=== PATIENT | female | born 1960 | race Two or more races ===

== ENCOUNTER 2020-01-26 21:13 | Inpatient (IN) | payer OTHER ==
[~2020-01-26] VITALS: Ht 162.6 cm; Wt 49.5 kg
[2020-01-26 21:13] VITALS: BP 92/62
--- NOTE | 2020-01-26 21:13 | NUR ---
ED Nurse Note: Patient ED M[facility]UR[facility] from [facility] c/o hemorrhoids and rectal bleeding, unk start date. Pt has hx of rectal prolapse. No active bleeding noted. Pt is alert and oriented x2, verbally responsive, able to answer question but with forgetfullness. Not in any distress. Afebrile. Pt placed on airport skilled maintenance supervisor. ERMD at bedside.
--- NOTE | 2020-01-26 21:20 | NUR ---
ED Nurse Note: IV line established. Blood specimen obtained and sent to lab.
[2020-01-26] MEDS ORDERED: PANTOPRAZOLE SO20 MG ORAL (21:21)
[2020-01-26] MEDS ORDERED: NORCO 5-325 TA1 EAC1 ORAL (21:21)
[2020-01-26] MEDS ORDERED: KETOROLAC15 MG/1 M1 IJ (21:21)
[2020-01-26] MEDS ORDERED: FERROUS SULFAT325 MG ORAL (21:21)
[2020-01-26] MEDS ORDERED: XIFAXAN550 MG ORAL (21:21)
[2020-01-26] MEDS ORDERED: LACTULOSE10 GM/153 PO (21:21)
[2020-01-26] MEDS ORDERED: ATIVAN0.5 MG ORAL (21:21)
[2020-01-26] MEDS ORDERED: KEPPRA500 M4 ORAL (21:21)
[2020-01-26] MEDS ORDERED: ACETAMINOPHEN325 M1 ORAL (21:21)
[2020-01-26] MEDS ORDERED: ZOFRAN4 M1 ORAL (21:21)
--- NOTE | 2020-01-26 21:21 | Emergency Room Report ---
History of Present Illness General Chief Complaint: Gastrointestinal Bleed Source: Medical Record Present Illness HPI 59-year-old female history of rectal prolapse history of liver cirrhosis history of altered mental status due to psychiatric illness presents with hemorrhoids, rectal prolapse allegedly bloody stools unknown start date, anemia patient presents for evaluation and work-up unknown aggravating or alleviating factors severity is moderate, constant patient is sent for possible GI bleed Allergies: Coded Allergies: No Known Allergies (Unverified , 01/26/20) COVID-19 Screening Contact w/high risk pt: Yes Recent Travel to affected area: No Experienced COVID-19 symptoms?: No Patient History Limited by: medical condition - Psychiatric disability Last Menstrual Period: na Now: No : 0 Para: 0 Reviewed Nursing Documentation: PMH: Agreed; PSxH: Agreed Nursing Documentation-PMH Hx Hypertension: Yes Hx Gastrointestinal Problems: Yes - rectal prolapse; cholecystitis; cirrhosis Hx Dialysis: 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 Hx Neurological Problems: Yes - anxiety Hx Seizures: Yes - epilepsy Review of Systems All Other Systems: limited - Psychiatric disability Physical Exam Vital Signs Date Time Temp Pulse Resp B/P (MAP) Pulse Ox O2 Delivery O2 Flow Rate FiO2 01/26/20 21:02 98.8 77 18 92/62 (72) 88 Room Air Sp02 EP Interpretation: normal, abnormal - Mild hypoxia 94% General Appearance: no apparent distress, alert Head: normocephalic, atraumatic Eyes: bilateral eye PERRL, bilateral eye EOMI, bilateral eye conjunctivae pale ENT: uvula midline, moist mucus membranes Neck: supple, thyroid normal, supple/symm/no masses Respiratory: lungs clear, no respiratory distress, no retraction, no accessory muscle use Cardiovascular #1: normal peripheral pulses, regular rate, rhythm, no edema, no gallop, no murmur Gastrointestinal: non tender, soft, no guarding, no rebound Rectal: hemorrhoids, other - [employer] Yoan RN supervised, no rectal prolapse , some blood on exam Musculoskeletal: normal inspection Neurologic: alert, oriented x3 Psychiatric: mood/affect normal Skin: no rash, warm/dry Medical Decision Making Diagnostic Impression: Primary Impression: Gastrointestinal hemorrhage Qualified Codes: K92.2 - Gastrointestinal hemorrhage, unspecified Additional Impression: Suspected COVID-19 virus infection ER Course 59-year-old female presents with possible GI bleed, will obtain labs, coagulation, differential diagnosis includes ulcer, hemorrhoids, diverticulosis Patient will be started on Protonix, fluids, plan for admission to [facility] patient also be placed under COVID precautions given her some hypoxia Patient admitted to Dr. Aragon Laboratory Tests Test 01/26/20 21:00 01/27/20 01:04 01/27/20 06:26 White Blood Count 5.0 K/UL (4.8-10.8) 2.9 K/UL (4.8-10.8) L Red Blood Count 4.42 M/UL (4.20-5.40) 3.89 M/UL (4.20-5.40) L Hemoglobin 13.7 G/DL (12.0-16.0) 12.1 G/DL (12.0-16.0) Hematocrit 41.7 % (37.0-47.0) 34.5 % (37.0-47.0) L Mean Corpuscular Volume 94 FL (80-99) 89 FL (80-99) Mean Corpuscular Hemoglobin 31.0 PG (27.0-31.0) 31.1 PG (27.0-31.0) H Mean Corpuscular Hemoglobin Concent 32.9 G/DL (32.0-36.0) 35.0 G/DL (32.0-36.0) Red Cell Distribution Width 18.8 % (11.6-14.8) H 16.4 % (11.6-14.8) H Platelet Count 104 K/UL (150-450) L 72 K/UL (150-450) L Mean Platelet Volume 7.2 FL (6.5-10.1) 5.7 FL (6.5-10.1) L Neutrophils (%) (Auto) 69.9 % (45.0-75.0) % (45.0-75.0) Lymphocytes (%) (Auto) 21.9 % (20.0-45.0) % (20.0-45.0) Monocytes (%) (Auto) 5.9 % (1.0-10.0) % (1.0-10.0) Eosinophils (%) (Auto) 1.3 % (0.0-3.0) % (0.0-3.0) Basophils (%) (Auto) 1.0 % (0.0-2.0) % (0.0-2.0) Prothrombin Time 12.6 SEC (9.30-11.50) H Prothrombin Time INR 1.2 (0.9-1.1) H Activated Partial Thromboplast Time 27 SEC (23-33) Sodium Level 140 MMOL/L (136-145) 145 MMOL/L (136-145) Potassium Level 5.1 MMOL/L (3.5-5.1) 3.6 MMOL/L (3.5-5.1) Chloride Level 107 MMOL/L (98-107) 113 MMOL/L (98-107) H Carbon Dioxide Level 27 MMOL/L (21-32) 24 MMOL/L (21-32) Anion Gap 6 mmol/L (5-15) 9 mmol/L (5-15) Blood Urea Nitrogen 18 mg/dL (7-18) 12 mg/dL (7-18) Creatinine 0.8 MG/DL (0.55-1.30) 0.7 MG/DL (0.55-1.30) Estimated Glomerular Filtration Rate > 60 mL/min (>60) > 60 mL/min (>60) Glucose Level 104 MG/DL (74-106) 80 MG/DL (74-106) Lactic Acid Level 0.70 mmol/L (0.4-2.0) Calcium Level 9.7 MG/DL (8.5-10.1) 7.8 MG/DL (8.5-10.1) L Total Bilirubin 0.9 MG/DL (0.2-1.0) Aspartate Amino Transferase (AST) 52 U/L (15-37) H Alanine Aminotransferase (ALT) 32 U/L (12-78) Alkaline Phosphatase 99 U/L (46-116) Troponin I 0.000 ng/mL (0.000-0.056) Total Protein 7.5 G/DL (6.4-8.2) Albumin 3.3 G/DL (3.4-5.0) L Globulin 4.2 g/dL Albumin/Globulin Ratio 0.8 (1.0-2.7) L Lipase 330 U/L (73-393) Urine Color Yellow Urine Appearance Clear Urine pH 6.5 (4.5-8.0) Urine Specific [place] 1.015 (1.005-1.035) Urine Protein Negative (NEGATIVE) Urine Glucose (UA) Negative (NEGATIVE) Urine Ketones 1+ (NEGATIVE) H Urine Blood Negative (NEGATIVE) Urine Nitrite Negative (NEGATIVE) Urine Bilirubin Negative (NEGATIVE) Urine Urobilinogen 1 MG/DL (0.0-1.0) H Urine Leukocyte Esterase 1+ (NEGATIVE) H Urine RBC 0-2 /HPF (0 - 2) Urine WBC 2-4 /HPF (0 - 2) Urine Squamous Epithelial Cells Moderate /LPF (NONE/OCC) H Urine Bacteria Few /HPF (NONE) Differential Total Cells Counted 100 Neutrophils % (Manual) 56 % (45-75) Lymphocytes % (Manual) 38 % (20-45) Monocytes % (Manual) 4 % (1-10) Eosinophils % (Manual) 2 % (0-3) Basophils % (Manual) 0 % (0-2) Band Neutrophils 0 % (0-8) Platelet Estimate Decreased L Platelet Morphology Normal Anisocytosis 1+ EKG Diagnostic Results EKG Time: 21:20 EP Interpretation: NSR, rate 76, QTc 423, no acute ST elevations, normal axis Rhythm Strip Diag. Results Rhythm Strip Time: 21:29 EP Interpretation: yes Rate: 77 Rhythm: NSR, no PVC's, no ectopy Chest X-Ray Diagnostic Results Chest X-Ray Diagnostic Results : Chest X-Ray Ordered: Yes # of Views/Limited/Complete: 1 View Indication: Other - Preoperative EP Interpretation: Yes Interpretation: no consolidation, no effusion, no pneumothorax, no acute cardiopulmonary disease Impression: No acute disease Electronically Signed by: Reynaldo Hickman MD Last Vital Signs Date Time Temp Pulse Resp B/P (MAP) Pulse Ox O2 Delivery O2 Flow Rate FiO2 01/26/20 21:02 98.8 77 18 92/62 (72) 88 Room Air Disposition: ADMITTED INPATIENT Condition: Stable Reynaldo Hickman MD Jan 26, 2020 21:21
[2020-01-26] MEDS ORDERED: Pantoprazole Inj IV ONE (21:30)
--- NOTE | 2020-01-26 21:30 | NUR ---
ED Nurse Note: Xray at bedside.
[2020-01-26 21:50] LABS: EOSINOPHILS % (AUTO) 1.3 % (0.0-3.0); HEMATOCRIT 41.7 % (37.0-47.0); HEMOGLOBIN 13.7 G/DL (12.0-16.0); LYMPHOCYTES % (AUTO) 21.9 % (20.0-45.0); MEAN CORPUSCULAR VOLUME 94 FL (80-99); MONOCYTES % (AUTO) 5.9 % (1.0-10.0); NEUTROPHILS % (AUTO) 69.9 % (45.0-75.0); PLATELET COUNT 104 K/UL (150-450); RED BLOOD COUNT 4.42 M/UL (4.20-5.40); RED CELL DISTRIBUTION WIDTH 18.8 % (11.6-14.8)
[2020-01-26 21:57] LABS: INR 1.2 (0.9-1.1)
[2020-01-26 22:04] LABS: ALANINE AMINOTRANSFERASE 32 U/L (12-78); ALBUMIN 3.3 G/DL (3.4-5.0); ALBUMIN/GLOBULIN RATIO 0.8 (1.0-2.7); ALKALINE PHOSPHATASE 99 U/L (46-116); ANION GAP 6 mmol/L (5-15); ASPARTATE AMINO TRANSFERASE 52 U/L (15-37); BILIRUBIN,TOTAL 0.9 MG/DL (0.2-1.0); BLOOD UREA NITROGEN 18 mg/dL (7-18); CALCIUM 9.7 MG/DL (8.5-10.1); CARBON DIOXIDE 27 MMOL/L (21-32); CHLORIDE 107 MMOL/L (98-107); CREATININE 0.8 MG/DL (0.55-1.30); POTASSIUM 5.1 MMOL/L (3.5-5.1); SODIUM 140 MMOL/L (136-145)
[2020-01-26 23:00] VITALS: BP 97/65
--- NOTE | 2020-01-26 23:07 | NUR ---
ED Nurse Note: Pt is noted with hematoma and small bump on periorbital area.
--- NOTE | 2020-01-26 23:30 | NUR ---
ED Nurse Note: messaged dr. cornoado for orders.
[2020-01-27] VITALS (9 sets, daily range): BP systolic 93–141; BP diastolic 58–80
--- NOTE | 2020-01-27 00:45 | NUR ---
ED Nurse Note: messaged dr. coronado for admission orders, no reply
--- NOTE | 2020-01-27 01:05 | NUR ---
ED Nurse Note: Urien specimen collected and sent to lab.
[2020-01-27 01:14] LABS: APPEARANCE,URINE CLEAR; BILIRUBIN, URINE NEGATIVE (NEGATIVE); GLUCOSE, URINE (UA) NEGATIVE (NEGATIVE); KETONES,URINE 1+ (NEGATIVE); LEUKOCYTE ESTERASE ,URINE 1+ (NEGATIVE); NITRITE,URINE NEGATIVE (NEGATIVE); PH,URINE 6.5 (4.5-8.0); PROTEIN,URINE NEGATIVE (NEGATIVE); UROBILINOGEN,URINE 1 MG/DL (0.0-1.0)
[2020-01-27 01:38] LABS: COLOR,URINE YELLOW
--- NOTE | 2020-01-27 03:10 | NUR ---
ED Nurse Note: messaged dr. coronado for admitting orders, no reply. boarding house cook notified
--- NOTE | 2020-01-27 06:08 | NUR ---
ED Nurse Note: Called Dr. Aragon for admiting orders and was told to call Dr. Arteaga to put in the orders. Addendum: 01/27/20 at 0612 by ELANA ED Nurse Note: Dr. Hahn put in the admitting orders.
[2020-01-27 06:43] LABS: HEMATOCRIT 34.5 % (37.0-47.0); HEMOGLOBIN 12.1 G/DL (12.0-16.0); MEAN CORPUSCULAR VOLUME 89 FL (80-99); PLATELET COUNT 72 K/UL (150-450); RED BLOOD COUNT 3.89 M/UL (4.20-5.40); RED CELL DISTRIBUTION WIDTH 16.4 % (11.6-14.8); WHITE BLOOD COUNT 2.9 K/UL (4.8-10.8)
[2020-01-27 06:55] LABS: ANION GAP 9 mmol/L (5-15); BLOOD UREA NITROGEN 12 mg/dL (7-18); CALCIUM 7.8 MG/DL (8.5-10.1); CARBON DIOXIDE 24 MMOL/L (21-32); CHLORIDE 113 MMOL/L (98-107); CREATININE 0.7 MG/DL (0.55-1.30); POTASSIUM 3.6 MMOL/L (3.5-5.1); SODIUM 145 MMOL/L (136-145)
--- NOTE | 2020-01-27 07:10 | NUR ---
HAND-OFF: Report given to Becca POMPA. Endorsed plan of care.
--- NOTE | 2020-01-27 07:12 | NUR ---
ED Nurse Note: No active bleeding noted. Pt is alert and oriented x2, verbally responsive, able to answer question. Not in any distress. Afebrile. Pt placed on monitoring tech. IV is patent.
--- NOTE | 2020-01-27 10:12 | Diagnostic Imaging Report ---
Indication: Shortness of breath Technique: One view of the chest Comparison: none Findings: Inspiration is suboptimal. Lungs and pleural spaces are clear. The heart size is normal Impression: Negative
--- NOTE | 2020-01-27 10:29 | NUR ---
ED Nurse Note: Report given to ALETHA Samson at 4E.
[2020-01-27] MEDS ORDERED: HYDROcodone/Acetamin 5/325 tab ORAL PRN (10:30)
--- NOTE | 2020-01-27 11:10 | NUR ---
ED Nurse Note: Patient transferred to safely. VSS and afebrile. All belongings packed with the list. Per patient, upper denture was lost prior to come to the ED.
--- NOTE | 2020-01-27 11:26 | NUR ---
nurse notes received patient from ED via bed, patient awake, alewrt, oriented x2 confused no sign of distress, HL patent, oriented to the unit,admission routine care rendered, on fall precaution, 4P's in progress call light w/n reach alpa salgado
[2020-01-27] MEDS: NS w/KCl 20mEq 1000ml 1,000 ML IV SCH (12:34)
[2020-01-27] MEDS: LORazepam 0.5mg tab ORAL SCH ×2 (12:34→17:09)
--- NOTE | 2020-01-27 13:14 | NUR ---
nurse notes refused IV hydration and oxygen, alpa salgado
--- NOTE | 2020-01-27 14:30 | General Progress Note ---
Assessment/Plan Assessment/Plan: cirrhosis rectal prolapse hemorrhoids psych ppi abd us hepatitis panel anusol hc surg consult fu H&H GI procedures if needed Subjective ROS Limited/Unobtainable: No Allergies: Coded Allergies: No Known Allergies (Unverified , 01/26/20) Objective Last 24 Hour Vital Signs Date Time Temp Pulse Resp B/P (MAP) Pulse Ox O2 Delivery O2 Flow Rate FiO2 01/27/20 11:50 97.5 79 18 110/62 (78) 97 01/27/20 11:37 Nasal Cannula 2.0 01/27/20 11:16 97.8 55 18 101/67 96 Nasal Cannula 2.0 58 01/27/20 10:54 97.8 55 18 101/67 96 Nasal Cannula 2.0 58 01/27/20 09:30 97.6 99 98/58 Nasal Cannula 2.0 01/27/20 07:15 97.1 57 12 113/64 100 Nasal Cannula 2.0 01/27/20 06:00 98.8 67 18 100/62 98 Room Air 01/27/20 03:00 98.8 68 18 99/65 97 Room Air 01/27/20 01:00 98.8 77 18 93/60 88 Room Air 01/26/20 23:00 98.8 80 16 97/65 98 Room Air 01/26/20 21:13 77 18 Room Air 01/26/20 21:13 98.8 77 18 92/62 88 Room Air 01/26/20 21:02 98.8 77 18 92/62 (72) 88 Room Air Intake and Output 01/26/20 01/27/20 19:00 07:00 Intake Total 1000 ml Balance 1000 ml Intake IV Total 1000 ml Laboratory Tests 01/26/20 21:00: White Blood Count 5.0, Red Blood Count 4.42, Hemoglobin 13.7, Hematocrit 41.7, Mean Corpuscular Volume 94, Mean Corpuscular Hemoglobin 31.0, Mean Corpuscular Hemoglobin Concent 32.9, Red Cell Distribution Width 18.8H, Platelet Count 104L , Mean Platelet Volume 7.2, Neutrophils (%) (Auto) 69.9, Lymphocytes (%) (Auto) 21.9, Monocytes (%) (Auto) 5.9, Eosinophils (%) (Auto) 1.3, Basophils (%) (Auto ) 1.0, Prothrombin Time 12.6H, Prothromb Time International Ratio 1.2H, Activated Partial Thromboplast Time 27, Sodium Level 140, Potassium Level 5.1, Chloride Level 107, Carbon Dioxide Level 27, Anion Gap 6, Blood Urea Nitrogen 18 , Creatinine 0.8, Estimat Glomerular Filtration Rate > 60, Glucose Level 104, Lactic Acid Level 0.70, Calcium Level 9.7, Total Bilirubin 0.9, Aspartate Amino Transf (AST/SGOT) 52H, Alanine Aminotransferase (ALT/SGPT) 32, Alkaline Phosphatase 99, Troponin I 0.000, Total Protein 7.5, Albumin 3.3L, Globulin 4.2 , Albumin/Globulin Ratio 0.8L, Lipase 330 01/27/20 01:04: Urine Color Yellow, Urine Appearance Clear, Urine pH 6.5, Urine Specific [place] 1.015, Urine Protein Negative, Urine Glucose (UA) Negative, Urine Ketones 1+H, Urine Blood Negative, Urine Nitrite Negative, Urine Bilirubin Negative, Urine Urobilinogen 1H, Urine Leukocyte Esterase 1+H, Urine RBC 0-2, Urine WBC 2-4, Urine Squamous Epithelial Cells ModerateH, Urine Bacteria Few 01/27/20 06:26: White Blood Count 2.9L, Red Blood Count 3.89L, Hemoglobin 12.1, Hematocrit 34.5L , Mean Corpuscular Volume 89, Mean Corpuscular Hemoglobin 31.1H, Mean Corpuscular Hemoglobin Concent 35.0, Red Cell Distribution Width 16.4H, Platelet Count 72L, Mean Platelet Volume 5.7L, Neutrophils (%) (Auto) , Lymphocytes (%) (Auto) , Monocytes (%) (Auto) , Eosinophils (%) (Auto) , Basophils (%) (Auto) , Sodium Level 145, Potassium Level 3.6, Chloride Level 113H, Carbon Dioxide Level 24, Anion Gap 9, Blood Urea Nitrogen 12, Creatinine 0.7, Estimat Glomerular Filtration Rate > 60, Glucose Level 80, Calcium Level 7.8L, Differential Total Cells Counted 100, Neutrophils % (Manual) 56, Lymphocytes % (Manual) 38, Monocytes % (Manual) 4, Eosinophils % (Manual) 2, Basophils % (Manual) 0, Band Neutrophils 0, Platelet Estimate DecreasedL, Platelet Morphology Normal, Anisocytosis 1+ Height (Feet): 5 Height (Inches): 4.00 Weight (Pounds): 109 General Appearance: no apparent distress EENT: normal ENT inspection Neck: supple Cardiovascular: normal rate Respiratory/Chest: decreased breath sounds Abdomen: normal bowel sounds, non tender, soft Extremities: non-tender Jose Maria Ge MD Jan 27, 2020 14:30
--- NOTE | 2020-01-27 15:06 | NUR ---
nurse notes patient pulled out her HL,refused IVF, Rrefused to put face mask, removed pads on the side rails , patient claimed she doesnt need all of this stuff , dr craven notified regarding patient concern and behavior awaiting for his call alpa salgado
--- NOTE | 2020-01-27 16:00 | NUR ---
nurse notes per Dr Jimenez ok not to have an HL, just feed the patient, NPO post MISA HUTCHINSON RN
--- NOTE | 2020-01-27 16:56 | Consultation ---
History of Present Illness General Date patient seen: Jan 27, 2020 Reason for Hospitalization: Gastrointestinal Bleed Present Illness HPI This is a very pleasant 59-year-old female with multiple medical comorbidities and known history of rectal prolapse history of liver cirrhosis history of altered mental status due to psychiatric illness presents with hemorrhoids, rectal prolapse allegedly bloody stools unknown start date, anemia patient presents for evaluation and work-up unknown aggravating or alleviating factors severity is moderate, constant patient is sent for possible GI bleed. Surgery called to evaluate assist care. Patient seen, patient evaluated, chart reviewed. Patient states that she could be bleeding from the bottom but is not sure. Had a bowel movement recently. She somewhat seems to understand what her rectal prolapse is but overall due to psychiatric illness and mental status is not very reliable in history or exam. She is cooperative with examination though Allergies: Coded Allergies: No Known Allergies (Unverified , 01/26/20) COVID-19 Screening Contact w/high risk pt: Yes Recent Travel to affected area: Yes Experienced COVID-19 symptoms?: No Medication History Scheduled Ferrous Sulfate* (Ferrous Sulfate*), 325 MG ORAL DAILY, (Reported) Levetiracetam (Keppra), 500 MG ORAL EVERY 12 HOURS, (Reported) Lorazepam* (Ativan*), 0.5 MG ORAL THREE TIMES A DAY, (Reported) Pantoprazole (Pantoprazole), 40 MG ORAL DAILY, (Reported) Rifaximin* (Xifaxan*), 550 MG ORAL TWICE A DAY, (Reported) Scheduled PRN Acetaminophen* (Acetaminophen 325MG Tablet*), 325 MG ORAL Q4H PRN for For Pain Level <=5, (Reported) Hydrocodone Bit/Acetaminophen 5-325* ([place] 5-325 Tablet*), 1 TAB ORAL Q4H PRN for Pain Scale (6-10), (Reported) Ondansetron (Zofran), 4 MG ORAL Q6H PRN for Nausea & Vomiting, (Reported) Miscellaneous Medications Ketorolac Tromethamine (Ketorolac Tromethamine), 15 MG IJ, (Reported) Lactulose (Lactulose), 20 GM PO, (Reported) Patient History Limited by: medical condition History Provided By: Patient, Medical Record, PMD Healthcare decision maker Resuscitation status Full Code Advanced Directive on File Past Medical/Surgical History Past Medical/Surgical History: (1) Gastrointestinal bleeding (2) Gastrointestinal hemorrhage (3) Suspected COVID-19 virus infection Review of Systems Review of Symptoms General ROS: no weight loss or fever Psychological ROS: no depression or mood changes, no memory loss Ophthalmic ROS: no visual changes or eye irritation ENT ROS: no nasal congestion, hearing loss, dizziness Allergy and Immunology ROS: no allergic symptoms or urticaria Hematological and Lymphatic ROS: no swollen glands, unusual bleeding or bruising Endocrine ROS: no polyuria, polydipsia, weight changes, temperature intolerance Respiratory ROS: no cough, shortness of breath, or wheezing Cardiovascular ROS: no chest pain or dyspnea on exertion Gastrointestinal ROS: denies abdominal pain, bright red blood in stool. Musculoskeletal ROS: no myalgias or arthralgias Neurological ROS: no TIA or stroke symptoms Dermatological ROS: no new or changing skin lesions, rashes or pruritis Physical Exam Physical Exam General appearance: alert, cooperative, no distress, appears stated age Head: Normocephalic, without obvious abnormality, atraumatic Eyes: conjunctivae/corneas clear. PERRL, EOM's intact. Fundi benign Throat: Lips, mucosa, and tongue normal. Teeth and gums normal Neck: supple, symmetrical, trachea midline, no adenopathy, thyroid: not enlarged, symmetric, no tenderness/mass/nodules, no carotid bruit and no JVD Lungs: clear to auscultation bilaterally Heart: regular rate and rhythm, S1, S2 normal, no murmur, click, rub or gallop Abdomen: soft, non-tender. Bowel sounds normal. No masses, no organomegaly Extremities: extremities normal, atraumatic, no cyanosis or edema Pulses: 2+ and symmetric Skin: Skin color, texture, turgor normal. No rashes or lesions Neurologic: Grossly normal Rectal exam without gross blood. No large external hemorrhoids noted. Sphincter tone decreased. Rectal prolapse reduced. Last 24 Hour Vital Signs Date Time Temp Pulse Resp B/P (MAP) Pulse Ox O2 Delivery O2 Flow Rate FiO2 01/27/20 16:00 98.6 79 19 141/80 (100) 98 01/27/20 11:50 97.5 79 18 110/62 (78) 97 01/27/20 11:37 Nasal Cannula 2.0 01/27/20 11:16 97.8 55 18 101/67 96 Nasal Cannula 2.0 58 01/27/20 10:54 97.8 55 18 101/67 96 Nasal Cannula 2.0 58 01/27/20 09:30 97.6 99 98/58 Nasal Cannula 2.0 01/27/20 07:15 97.1 57 12 113/64 100 Nasal Cannula 2.0 01/27/20 06:00 98.8 67 18 100/62 98 Room Air 01/27/20 03:00 98.8 68 18 99/65 97 Room Air 01/27/20 01:00 98.8 77 18 93/60 88 Room Air 01/26/20 23:00 98.8 80 16 97/65 98 Room Air 01/26/20 21:13 77 18 Room Air 01/26/20 21:13 98.8 77 18 92/62 88 Room Air 01/26/20 21:02 98.8 77 18 92/62 (72) 88 Room Air Intake and Output 01/26/20 01/27/20 19:00 07:00 Intake Total 1000 ml Balance 1000 ml Intake IV Total 1000 ml Laboratory Tests Test 01/26/20 21:00 01/27/20 01:04 01/27/20 06:26 White Blood Count 5.0 K/UL (4.8-10.8) 2.9 K/UL (4.8-10.8) L Red Blood Count 4.42 M/UL (4.20-5.40) 3.89 M/UL (4.20-5.40) L Hemoglobin 13.7 G/DL (12.0-16.0) 12.1 G/DL (12.0-16.0) Hematocrit 41.7 % (37.0-47.0) 34.5 % (37.0-47.0) L Mean Corpuscular Volume 94 FL (80-99) 89 FL (80-99) Mean Corpuscular Hemoglobin 31.0 PG (27.0-31.0) 31.1 PG (27.0-31.0) H Mean Corpuscular Hemoglobin Concent 32.9 G/DL (32.0-36.0) 35.0 G/DL (32.0-36.0) Red Cell Distribution Width 18.8 % (11.6-14.8) H 16.4 % (11.6-14.8) H Platelet Count 104 K/UL (150-450) L 72 K/UL (150-450) L Mean Platelet Volume 7.2 FL (6.5-10.1) 5.7 FL (6.5-10.1) L Neutrophils (%) (Auto) 69.9 % (45.0-75.0) % (45.0-75.0) Lymphocytes (%) (Auto) 21.9 % (20.0-45.0) % (20.0-45.0) Monocytes (%) (Auto) 5.9 % (1.0-10.0) % (1.0-10.0) Eosinophils (%) (Auto) 1.3 % (0.0-3.0) % (0.0-3.0) Basophils (%) (Auto) 1.0 % (0.0-2.0) % (0.0-2.0) Prothrombin Time 12.6 SEC (9.30-11.50) H Prothromb Time International Ratio 1.2 (0.9-1.1) H Activated Partial Thromboplast Time 27 SEC (23-33) Sodium Level 140 MMOL/L (136-145) 145 MMOL/L (136-145) Potassium Level 5.1 MMOL/L (3.5-5.1) 3.6 MMOL/L (3.5-5.1) Chloride Level 107 MMOL/L (98-107) 113 MMOL/L (98-107) H Carbon Dioxide Level 27 MMOL/L (21-32) 24 MMOL/L (21-32) Anion Gap 6 mmol/L (5-15) 9 mmol/L (5-15) Blood Urea Nitrogen 18 mg/dL (7-18) 12 mg/dL (7-18) Creatinine 0.8 MG/DL (0.55-1.30) 0.7 MG/DL (0.55-1.30) Estimat Glomerular Filtration Rate > 60 mL/min (>60) > 60 mL/min (>60) Glucose Level 104 MG/DL (74-106) 80 MG/DL (74-106) Lactic Acid Level 0.70 mmol/L (0.4-2.0) Calcium Level 9.7 MG/DL (8.5-10.1) 7.8 MG/DL (8.5-10.1) L Total Bilirubin 0.9 MG/DL (0.2-1.0) Aspartate Amino Transf (AST/SGOT) 52 U/L (15-37) H Alanine Aminotransferase (ALT/SGPT) 32 U/L (12-78) Alkaline Phosphatase 99 U/L (46-116) Troponin I 0.000 ng/mL (0.000-0.056) Total Protein 7.5 G/DL (6.4-8.2) Albumin 3.3 G/DL (3.4-5.0) L Globulin 4.2 g/dL Albumin/Globulin Ratio 0.8 (1.0-2.7) L Lipase 330 U/L (73-393) Urine Color Yellow Urine Appearance Clear Urine pH 6.5 (4.5-8.0) Urine Specific [place] 1.015 (1.005-1.035) Urine Protein Negative (NEGATIVE) Urine Glucose (UA) Negative (NEGATIVE) Urine Ketones 1+ (NEGATIVE) H Urine Blood Negative (NEGATIVE) Urine Nitrite Negative (NEGATIVE) Urine Bilirubin Negative (NEGATIVE) Urine Urobilinogen 1 MG/DL (0.0-1.0) H Urine Leukocyte Esterase 1+ (NEGATIVE) H Urine RBC 0-2 /HPF (0 - 2) Urine WBC 2-4 /HPF (0 - 2) Urine Squamous Epithelial Cells Moderate /LPF (NONE/OCC) H Urine Bacteria Few /HPF (NONE) Differential Total Cells Counted 100 Neutrophils % (Manual) 56 % (45-75) Lymphocytes % (Manual) 38 % (20-45) Monocytes % (Manual) 4 % (1-10) Eosinophils % (Manual) 2 % (0-3) Basophils % (Manual) 0 % (0-2) Band Neutrophils 0 % (0-8) Platelet Estimate Decreased L Platelet Morphology Normal Anisocytosis 1+ Microbiology Date/Time Source Procedure Growth Status 01/26/20 21:34 Rectum Received Height (Feet): 5 Height (Inches): 4.00 Weight (Pounds): 109 Medications Current Medications Medications (Trade) Dose Ordered Sig/Pilar Route PRN Reason Start Time Stop Time Status Last Admin Dose Admin Acetaminophen (Tylenol) 325 mg Q4H PRN ORAL For Pain Level <=5 01/27/20 10:30 02/26/20 10:29 Acetaminophen/ Hydrocodone Bitart ([place] 5/325) 1 tab Q4H PRN ORAL Moderate Pain (Pain Scale 4-6) 01/27/20 10:30 02/03/20 10:29 Dextrose (Dextrose 50%) 25 ml Q30M PRN IV Hypoglycemia 01/27/20 10:30 04/26/20 10:29 Dextrose (Dextrose 50%) 50 ml Q30M PRN IV Hypoglycemia 01/27/20 10:30 04/26/20 10:29 Ferrous Sulfate (Feosol) 325 mg DAILY ORAL 01/28/20 09:00 04/27/20 08:59 Hydrocortisone (Anusol HC) 25 mg TWICE A DAY RECTAL 01/27/20 18:00 04/26/20 17:59 Levetiracetam (Keppra) 500 mg EVERY 12 HOURS ORAL 01/27/20 21:00 02/26/20 20:59 Lorazepam (Ativan) 0.5 mg THREE TIMES A DAY ORAL 01/27/20 13:00 02/03/20 12:59 01/27/20 12:34 Ondansetron HCl (Zofran) 4 mg Q6H PRN ORAL Nausea & Vomiting 01/27/20 10:30 02/26/20 10:29 Pantoprazole (Protonix) 40 mg DAILY IV 01/28/20 09:00 02/27/20 08:59 Potassium Chloride/Sodium Chloride 1,000 ml @ 50 mls/hr Q20H IV 01/27/20 12:00 02/26/20 11:59 01/27/20 12:34 Rifaximin (Xifaxan) 550 mg TWICE A DAY ORAL 01/27/20 18:00 02/03/20 17:59 Assessment/Plan Problem List: (1) Gastrointestinal hemorrhage Assessment & Plan: 59-year-old female with history of liver cirrhosis, rectal prolapse, psychiatric disorder, multiple comorbidities presented with potential GI bleed is noted to have some blood. Currently no bleeding. Rectal prolapse is reduced. No large hemorrhoids noted. No nausea vomiting fever chills. She is fairly present and comfortable at this time. Labs noted. Hemoglobin stable. Trend labs. Okay for diet from surgical standpoint Ultrasound abdomen No acute surgical intervention planned will follow with recommendations and serial examinations thank you for let me participate in patient's care ICD Codes: K92.2 - Gastrointestinal hemorrhage, unspecified SNOMED: 12306983 Qualifiers: Qualified Codes: K92.2 - Gastrointestinal hemorrhage, unspecified (2) Suspected COVID-19 virus infection ICD Codes: Z20.828 - Contact with and (suspected) exposure to other viral communicable diseases SNOMED: 861899874 (3) Gastrointestinal bleeding ICD Codes: K92.2 - Gastrointestinal hemorrhage, unspecified SNOMED: 54563456 Osmni Minaya Jan 27, 2020 16:56
[2020-01-27] MEDS: Hydrocortisone 25mg supp RECTAL SCH (17:10)
--- NOTE | 2020-01-27 17:29 | Consultation ---
DATE OF CONSULTATION: 01/27/2020 PULMONARY CONSULTATION HISTORY OF PRESENT ILLNESS: This is a 59-year-old female with a history of liver cirrhosis and chronically altered mental status/encephalopathy, who came to the hospital with rectal bleeding. The patient has a history of rectal prolapse as well as hemorrhoids. She also has been having bloody stools. The patient was seen and evaluated, admitted to the hospital for subsequent management and care. Hemoglobin was 13.7 on arrival. At this time, the patient states she is feeling well and unable to answer any further questions. PAST MEDICAL HISTORY: Notable for psych disorder, rectal prolapse, liver cirrhosis, history of cholecystitis, chronic renal insufficiency, anxiety, and seizure disorder. REVIEW OF SYSTEMS: Unreliable. PHYSICAL EXAMINATION: GENERAL: Reveals an elderly female. VITAL SIGNS: Blood pressure is 90/60, heart rate is 94, respiratory rate 20, afebrile, O2 saturation 100% on 2 L of oxygen. HEENT: Unremarkable. CHEST: Clear breath sounds bilaterally. HEART: Normal heart sounds. ABDOMEN: Soft. EXTREMITIES: There is no edema. LABORATORY DATA: Lab testing shows normal chemistries with AST of 52. White count 2.9, hemoglobin 12, platelet count 72,000. Coags show INR of 1.2. Urinalysis is negative. IMAGING STUDIES: X-ray chest obtained, which shows clear lung [place] bilaterally. IMPRESSION: 1. Lower GI bleed. 2. Hemorrhoids. 3. Rectal prolapse. 4. Liver cirrhosis. 5. Thrombocytopenia. 6. Psych disorder. DISCUSSION: Admitted to the hospital. Continue home medications. Consult surgery and GI. We will follow as pattern attendant. Art Arteaga M.D. DR: Kevin JOB#: [id number] CC:
--- NOTE | 2020-01-27 19:28 | NUR ---
HAND-OFF: Report given to ALETHA TORREZ RN.
--- NOTE | 2020-01-27 19:30 | NUR ---
NURSE NOTES: Received patient in no apparent distress. A&OX2, confusion. Bed in lowest position. Call light within reach. Will continue to monitor.
[2020-01-28] VITALS: BP 100/67
[2020-01-28 04:00] VITALS: BP 118/68
[2020-01-28 06:42] LABS: INR 1.2 (0.9-1.1)
[2020-01-28 07:12] LABS: AMMONIA 22 umol/L (11-32)
[2020-01-28 07:13] LABS: BASOPHILS % (AUTO) 0.8 % (0.0-2.0); HEMATOCRIT 37.5 % (37.0-47.0); HEMOGLOBIN 13.4 G/DL (12.0-16.0); LYMPHOCYTES % (AUTO) 35.5 % (20.0-45.0); MEAN CORPUSCULAR VOLUME 88 FL (80-99); MONOCYTES % (AUTO) 6.3 % (1.0-10.0); NEUTROPHILS % (AUTO) 55.4 % (45.0-75.0); PLATELET COUNT 105 K/UL (150-450); RED BLOOD COUNT 4.24 M/UL (4.20-5.40); WHITE BLOOD COUNT 3.6 K/UL (4.8-10.8)
--- NOTE | 2020-01-28 07:25 | NUR ---
NURSE NOTES: Received patient A/A/OX3, palestinian speaking, able to follow commands. ambulates with minimal assist. fall risk implemented. yellow socks. NO acutre resp distress noted. Bed in lowest position. siderails are up x3. No IV access and refused to be reinserted. Call light within reach. Will continue to monitor.
--- NOTE | 2020-01-28 07:30 | NUR ---
HAND-OFF: Report given to Arabella POMPA.
[2020-01-28 07:40] LABS: ALANINE AMINOTRANSFERASE 38 U/L (12-78); ALBUMIN 3.3 G/DL (3.4-5.0); ALBUMIN/GLOBULIN RATIO 0.8 (1.0-2.7); ALKALINE PHOSPHATASE 94 U/L (46-116); ANION GAP 10 mmol/L (5-15); ASPARTATE AMINO TRANSFERASE 36 U/L (15-37); BLOOD UREA NITROGEN 8 mg/dL (7-18); CALCIUM 9.1 MG/DL (8.5-10.1); CARBON DIOXIDE 26 MMOL/L (21-32); CHLORIDE 108 MMOL/L (98-107); CREATININE 0.7 MG/DL (0.55-1.30); POTASSIUM 4.6 MMOL/L (3.5-5.1); SODIUM 144 MMOL/L (136-145)
[2020-01-28 08:00] VITALS: BP 105/69
[2020-01-28] MEDS: NS w/KCl 20mEq 1000ml 1,000 ML IV SCH (08:00)
[2020-01-28] MEDS: LORazepam 0.5mg tab ORAL SCH ×3 (08:12→17:29)
[2020-01-28] MEDS: Hydrocortisone 25mg supp RECTAL SCH ×2 (08:15→17:29)
[2020-01-28 08:58] LABS: % IRON SATURATION 29 % (15-50); IRON 98 ug/dL (50-175); TOTAL IRON BINDING CAPACITY 344 ug/dL (250-450)
[2020-01-28] MEDS ORDERED: Pantoprazole Inj IV SCH (09:00)
--- NOTE | 2020-01-28 09:54 | General Progress Note ---
Assessment/Plan Assessment/Plan: cirrhosis rectal prolapse>>> reduced by surg yesterday hemorrhoids psych ppi abd us hepatitis panel anusol hc surg consult appreciated fu H&H>>> stable GI procedures on hold Subjective Allergies: Coded Allergies: No Known Allergies (Unverified , 01/26/20) Objective Last 24 Hour Vital Signs Date Time Temp Pulse Resp B/P (MAP) Pulse Ox O2 Delivery O2 Flow Rate FiO2 01/28/20 09:05 Room Air 01/28/20 08:00 97.6 71 20 105/69 (81) 99 01/28/20 04:00 97.8 74 18 118/68 (85) 96 01/28/20 00:00 98.0 76 19 100/67 (78) 97 01/27/20 21:00 Room Air 01/27/20 20:00 98.3 72 19 98/62 (74) 96 01/27/20 16:00 98.6 79 19 141/80 (100) 98 01/27/20 11:50 97.5 79 18 110/62 (78) 97 01/27/20 11:37 Nasal Cannula 2.0 01/27/20 11:16 97.8 55 18 101/67 96 Nasal Cannula 2.0 58 01/27/20 10:54 97.8 55 18 101/67 96 Nasal Cannula 2.0 58 Intake and Output 01/27/20 01/28/20 19:00 07:00 Intake Total 640 ml 640 ml Balance 640 ml 640 ml Intake Oral 640 ml 640 ml # Voids 4 2 Laboratory Tests 01/28/20 05:50: White Blood Count 3.6L, Red Blood Count 4.24, Hemoglobin 13.4, Hematocrit 37.5, Mean Corpuscular Volume 88, Mean Corpuscular Hemoglobin 31.5H, Mean Corpuscular Hemoglobin Concent 35.6, Red Cell Distribution Width 16.0H, Platelet Count 105L , Mean Platelet Volume 5.5L, Neutrophils (%) (Auto) 55.4, Lymphocytes (%) (Auto ) 35.5, Monocytes (%) (Auto) 6.3, Eosinophils (%) (Auto) 2.0, Basophils (%) ( Auto) 0.8, Prothrombin Time 12.9H, Prothromb Time International Ratio 1.2H, Sodium Level 144, Potassium Level 4.6, Chloride Level 108H, Carbon Dioxide Level 26, Anion Gap 10, Blood Urea Nitrogen 8, Creatinine 0.7, Estimat Glomerular Filtration Rate > 60, Glucose Level 84, Calcium Level 9.1, Iron Level 98, Total Iron Binding Capacity 344, Percent Iron Saturation 29, Unsaturated Iron Binding 246, Total Bilirubin 1.0, Aspartate Amino Transf (AST/ SGOT) 36, Alanine Aminotransferase (ALT/SGPT) 38, Alkaline Phosphatase 94, Ammonia 22, Total Protein 7.5, Albumin 3.3L, Globulin 4.2, Albumin/Globulin Ratio 0.8L, Vitamin B12 Level 1006H, Folate 16.5, Hepatitis A IgM Antibody [ Pending], Hepatitis B Surface Antigen [Pending], Hepatitis B Core IgM Antibody [ Pending], Hepatitis C Antibody [Pending] Height (Feet): 5 Height (Inches): 4.00 Weight (Pounds): 109 General Appearance: alert EENT: normal ENT inspection Neck: supple Cardiovascular: normal rate Respiratory/Chest: decreased breath sounds Abdomen: normal bowel sounds, non tender, soft Extremities: non-tender Jose Maria Ge MD January 28, 2020 09:54
--- NOTE | 2020-01-28 11:39 | Surgery Progress Note ---
Surgery Progress Note Subjective Symptoms: improved, pain absent, tolerating diet, voiding well, passing flatus Objective Last 24 Hour Vital Signs Date Time Temp Pulse Resp B/P (MAP) Pulse Ox O2 Delivery O2 Flow Rate FiO2 01/28/20 09:05 Room Air 01/28/20 08:00 97.6 71 20 105/69 (81) 99 01/28/20 04:00 97.8 74 18 118/68 (85) 96 01/28/20 00:00 98.0 76 19 100/67 (78) 97 01/27/20 21:00 Room Air 01/27/20 20:00 98.3 72 19 98/62 (74) 96 01/27/20 16:00 98.6 79 19 141/80 (100) 98 01/27/20 11:50 97.5 79 18 110/62 (78) 97 I&O Intake and Output 01/27/20 01/28/20 19:00 07:00 Intake Total 640 ml 640 ml Balance 640 ml 640 ml Intake Oral 640 ml 640 ml # Voids 4 2 Cardiovascular: RSR Respiratory: clear Abdomen: soft, non-tender, present bowel sounds, non-distended Extremities: no edema, no tenderness, no cyanosis Laboratory Tests Test 01/28/20 05:50 White Blood Count 3.6 K/UL (4.8-10.8) L Red Blood Count 4.24 M/UL (4.20-5.40) Hemoglobin 13.4 G/DL (12.0-16.0) Hematocrit 37.5 % (37.0-47.0) Mean Corpuscular Volume 88 FL (80-99) Mean Corpuscular Hemoglobin 31.5 PG (27.0-31.0) H Mean Corpuscular Hemoglobin Concent 35.6 G/DL (32.0-36.0) Red Cell Distribution Width 16.0 % (11.6-14.8) H Platelet Count 105 K/UL (150-450) L Mean Platelet Volume 5.5 FL (6.5-10.1) L Neutrophils (%) (Auto) 55.4 % (45.0-75.0) Lymphocytes (%) (Auto) 35.5 % (20.0-45.0) Monocytes (%) (Auto) 6.3 % (1.0-10.0) Eosinophils (%) (Auto) 2.0 % (0.0-3.0) Basophils (%) (Auto) 0.8 % (0.0-2.0) Prothrombin Time 12.9 SEC (9.30-11.50) H Prothromb Time International Ratio 1.2 (0.9-1.1) H Sodium Level 144 MMOL/L (136-145) Potassium Level 4.6 MMOL/L (3.5-5.1) Chloride Level 108 MMOL/L (98-107) H Carbon Dioxide Level 26 MMOL/L (21-32) Anion Gap 10 mmol/L (5-15) Blood Urea Nitrogen 8 mg/dL (7-18) Creatinine 0.7 MG/DL (0.55-1.30) Estimat Glomerular Filtration Rate > 60 mL/min (>60) Glucose Level 84 MG/DL (74-106) Calcium Level 9.1 MG/DL (8.5-10.1) Iron Level 98 ug/dL (50-175) Total Iron Binding Capacity 344 ug/dL (250-450) Percent Iron Saturation 29 % (15-50) Unsaturated Iron Binding 246 ug/dL (112-346) Total Bilirubin 1.0 MG/DL (0.2-1.0) Aspartate Amino Transf (AST/SGOT) 36 U/L (15-37) Alanine Aminotransferase (ALT/SGPT) 38 U/L (12-78) Alkaline Phosphatase 94 U/L (46-116) Ammonia 22 umol/L (11-32) Total Protein 7.5 G/DL (6.4-8.2) Albumin 3.3 G/DL (3.4-5.0) L Globulin 4.2 g/dL Albumin/Globulin Ratio 0.8 (1.0-2.7) L Vitamin B12 Level 1006 PG/ML (193-986) H Folate 16.5 NG/ML (8.6-58.9) Hepatitis A IgM Antibody Pending Hepatitis B Surface Antigen Pending Hepatitis B Core IgM Antibody Pending Hepatitis C Antibody Pending Plan Problems: (1) Gastrointestinal hemorrhage Assessment & Plan: 59-year-old female with history of liver cirrhosis, rectal prolapse, psychiatric disorder, multiple comorbidities presented with potential GI bleed is noted to have some blood. Currently no bleeding. Rectal prolapse is reduced. No large hemorrhoids noted. No nausea vomiting fever chills. She is fairly present and comfortable at this time. Labs noted. Hemoglobin stable. Trend labs. Okay for diet from surgical standpoint Ultrasound abdomen No acute surgical intervention planned will follow with recommendations and serial examinations thank you for let me participate in patient's care (2) Suspected COVID-19 virus infection (3) Gastrointestinal bleeding Osmin Minaya January 28, 2020 11:39
[2020-01-28 12:00] VITALS: BP 104/66
--- NOTE | 2020-01-28 13:00 | History and Physical Report ---
NOTE: PATIENT DETAILS NOT DICTATED. HISTORY OF PRESENT ILLNESS: This is a 59-year-old female came to the emergency room for having a lower GI bleed as well as find out big hemorrhoids. The patient denies any fever or chills slightly. The patient is alert and oriented x3, refusing some treatment. The patient is ruled out COVID. PAST MEDICAL HISTORY: Significant for anemia, hypertension, seizure, and GERD. MEDICATIONS: She is taking PPIs, Keppra, lorazepam, [place], and ferrous sulfate. PHYSICAL EXAMINATION: GENERAL: This is an elderly female, currently in bed and sitting and looks comfortable. VITAL SIGNS: Blood pressure 110/62, pulse 79, respirations 18, and temperature 97.5. HEENT: NAD. CHEST: Bilateral decreased breath sounds. CARDIOVASCULAR: Regular rhythm. No gallop. No murmur. ABDOMEN: Soft. Positive bowel sounds. Mild tenderness. EXTREMITIES: CCE. NEUROLOGICAL: The patient has generalized weakness. GENITOURINARY: Deferred. LABORATORY DATA: White counts are 5000, hemoglobin is 13.7 to 12, 1 gram dropped from yesterday. Platelets are 104 to 172. Urine is 1+ bilirubin, 1+ leukocyte esterase. ASSESSMENT AND PLAN: 1. Lower gastrointestinal bleed. 2. Hemorrhoids. 3. UTI. 4. Dehydration. We will continue IV fluid. Continue Keppra. Continue home medications. GI consult. Check ultrasound of abdomen. Consider Pulmonary and GI consult. Juan Aragon M.D. DR: Maldonado JOB#: [id number] CC:
--- NOTE | 2020-01-28 13:49 | NUR ---
CASE MANAGEMENT:INITIAL REVIEW 01/27/2020 59 YR OLD FEMALE BIBA FROM [facility] HCC CC;GASTROINTESTINAL BLEED SI;GASTROINTESTINAL BLEED. SUSPECTED COVID-19 VRAL INFECTION 98.8 80 18 88% ON RA (O2 ADMINISTERED @ 2L NC) AST 52 ALB 3.3 UA+ KETONES, UROBILI, LEUKOCYTE, SQUAMOUS EPITH CELLS CXR ~ NEGATIVE COVID-19 SWAB ~ RESULT PENDING IS;PROTONIX IV ONCE IVF NS BOLUS ADMITTED TO MED SURG ON 01/27/20 @ 1029 MED SURG STATUS DCP; FROM [facility] CASE MANAGEMENT:REVIEW CONCURRENT REVIEW 01/28/2020 SI;LOWER GI BLEED. HEMORRHOIDS. CIRRHOSIS. RECTAL PROLAPSE. SUSPECTED COVID-19 ~ RESULT PENDING 98.0 78 20 100/67 96% ON RA CL 108 ALB 3.3 IS;PROTONIX PO QD FEOSOL PO QD KEPPRA PO Q12 HRS RIFAXIMIJN PO BID ANUSOL RECTAL BID IVF NS @ 50 ML/HR MED SURG STATUS DCP;FROM [facility]
--- NOTE | 2020-01-28 14:44 | NUR ---
*-* INSURANCE *-* ALL CLINICALS AND REVIEWS HAVE BEEN FAXED TO: CHELSEY RAMIREZ NCM:RYAN #[phone] ext [phone] P: [phone] [employer] Vasiliy Baron [phone]
--- NOTE | 2020-01-28 15:53 | NUR ---
NURSE NOTES: Patient fell, but was not witnessed but heard. When we entered the room, pt was lying on the floor. MD Aragon was notified and awaiting any new orders. [employer]IT[employer] TANK WASHER was called per protocol. Nursing farm supervisor was made aware. patient placed back on bed with bed alarm.
[2020-01-28 16:00] VITALS: BP 97/57
--- NOTE | 2020-01-28 17:15 | Pulmonology Progress Note ---
Assessment/Plan Assessment/Plan IMPRESSION: 1. Lower GI bleed. 2. Hemorrhoids. 3. Rectal prolapse. 4. Liver cirrhosis. 5. Thrombocytopenia. 6. Psych disorder. DISCUSSION: Continue home medications. Consult surgery and GI. I will follow as stone driller helper. Saturating well on RA Art Arteaga M.D. Subjective ROS Limited/Unobtainable: No Interval Events: None new Constitutional: Reports: no symptoms HEENT: Repors: no symptoms Respiratory: Reports: no symptoms Cardiovascular: Reports: no symptoms Gastrointestinal/Abdominal: Reports: no symptoms Allergies: Coded Allergies: No Known Allergies (Unverified , 01/26/20) Objective Last 24 Hour Vital Signs Date Time Temp Pulse Resp B/P (MAP) Pulse Ox O2 Delivery O2 Flow Rate FiO2 01/28/20 16:00 96.6 70 18 97/57 (70) 98 01/28/20 12:00 97.7 78 18 104/66 (79) 96 01/28/20 09:05 Room Air 01/28/20 08:00 97.6 71 20 105/69 (81) 99 01/28/20 04:00 97.8 74 18 118/68 (85) 96 01/28/20 00:00 98.0 76 19 100/67 (78) 97 01/27/20 21:00 Room Air 01/27/20 20:00 98.3 72 19 98/62 (74) 96 Intake and Output 01/27/20 01/28/20 19:00 07:00 Intake Total 640 ml 640 ml Balance 640 ml 640 ml Intake Oral 640 ml 640 ml # Voids 4 2 General Appearance: no acute distress HEENT: normocephalic Respiratory/Chest: chest wall non-tender, lungs clear Cardiovascular: normal peripheral pulses Abdomen: normal bowel sounds Microbiology Date/Time Source Procedure Growth Status 01/26/20 21:22 Blood Blood Culture - Preliminary NO GROWTH AFTER 24 HOURS Resulted 01/26/20 21:00 Blood Blood Culture - Preliminary NO GROWTH AFTER 24 HOURS Resulted 01/26/20 21:34 Rectum Received Laboratory Tests 01/28/20 05:50: White Blood Count 3.6L, Red Blood Count 4.24, Hemoglobin 13.4, Hematocrit 37.5, Mean Corpuscular Volume 88, Mean Corpuscular Hemoglobin 31.5H, Mean Corpuscular Hemoglobin Concent 35.6, Red Cell Distribution Width 16.0H, Platelet Count 105L , Mean Platelet Volume 5.5L, Neutrophils (%) (Auto) 55.4, Lymphocytes (%) (Auto ) 35.5, Monocytes (%) (Auto) 6.3, Eosinophils (%) (Auto) 2.0, Basophils (%) ( Auto) 0.8, Prothrombin Time 12.9H, Prothromb Time International Ratio 1.2H, Sodium Level 144, Potassium Level 4.6, Chloride Level 108H, Carbon Dioxide Level 26, Anion Gap 10, Blood Urea Nitrogen 8, Creatinine 0.7, Estimat Glomerular Filtration Rate > 60, Glucose Level 84, Calcium Level 9.1, Iron Level 98, Total Iron Binding Capacity 344, Percent Iron Saturation 29, Unsaturated Iron Binding 246, Total Bilirubin 1.0, Aspartate Amino Transf (AST/ SGOT) 36, Alanine Aminotransferase (ALT/SGPT) 38, Alkaline Phosphatase 94, Ammonia 22, Total Protein 7.5, Albumin 3.3L, Globulin 4.2, Albumin/Globulin Ratio 0.8L, Vitamin B12 Level 1006H, Folate 16.5, Hepatitis A IgM Antibody [ Pending], Hepatitis B Surface Antigen [Pending], Hepatitis B Core IgM Antibody [ Pending], Hepatitis C Antibody [Pending] Current Medications Medications (Trade) Dose Ordered Sig/Pilar Route PRN Reason Start Time Stop Time Status Last Admin Dose Admin Acetaminophen (Tylenol) 325 mg Q4H PRN ORAL For Pain Level <=5 01/27/20 10:30 02/26/20 10:29 Acetaminophen/ Hydrocodone Bitart ([place] 5/325) 1 tab Q4H PRN ORAL Moderate Pain (Pain Scale 4-6) 01/27/20 10:30 02/03/20 10:29 Dextrose (Dextrose 50%) 25 ml Q30M PRN IV Hypoglycemia 01/27/20 10:30 04/26/20 10:29 Dextrose (Dextrose 50%) 50 ml Q30M PRN IV Hypoglycemia 01/27/20 10:30 04/26/20 10:29 Escitalopram Oxalate (Lexapro) 10 mg DAILY ORAL 01/28/20 13:00 02/27/20 12:59 01/28/20 13:06 Ferrous Sulfate (Feosol) 325 mg DAILY ORAL 01/28/20 09:00 04/27/20 08:59 01/28/20 08:12 Hydrocortisone (Anusol HC) 25 mg TWICE A DAY RECTAL 01/27/20 18:00 04/26/20 17:59 01/28/20 08:15 Levetiracetam (Keppra) 500 mg EVERY 12 HOURS ORAL 01/27/20 21:00 02/26/20 20:59 01/28/20 08:13 Lorazepam (Ativan) 0.5 mg THREE TIMES A DAY ORAL 01/27/20 13:00 02/03/20 12:59 01/28/20 13:06 Ondansetron HCl (Zofran) 4 mg Q6H PRN ORAL Nausea & Vomiting 01/27/20 10:30 02/26/20 10:29 Pantoprazole (Protonix) 40 mg DAILY ORAL 01/28/20 09:00 02/27/20 08:59 01/28/20 09:49 Potassium Chloride/Sodium Chloride 1,000 ml @ 50 mls/hr Q20H IV 01/27/20 12:00 02/26/20 11:59 01/27/20 12:34 Rifaximin (Xifaxan) 550 mg TWICE A DAY ORAL 01/27/20 18:00 02/03/20 17:59 01/28/20 08:15 Art Arteaga MD January 28, 2020 17:15
--- NOTE | 2020-01-28 19:09 | NUR ---
HAND-OFF: Report given to
--- NOTE | 2020-01-28 19:20 | NUR ---
NURSE NOTES: received patient on bed, awake. denies any pain or discomfort. was endorsed with no IV LINE. patient is s/p fall. advised patient to call and use the call light fro assistance. bed alarm on. bed locked and in lowest position. call light and light button within easy reach. per breanne, "there is an order for us abdomen complete for today and haven't done yet." called the ultrasound and radiology departmet, no one is picking up. charge nurse made aware. will continue plan of care. Addendum: 01/29/20 at 0326 by Melissa Lyons RN per breanne, there is no IV LINE. is aware. we'll try to re-insert an IV LINE
[2020-01-28 20:00] VITALS: BP 101/60
--- NOTE | 2020-01-28 21:00 | NUR ---
NURSE NOTES: tried to insert and iv but she gets agitated. she refused to have iv insertion. charge nurse made aware.
--- NOTE | 2020-01-28 22:44 | Progress Note ---
DATE: 01/28/2020 HISTORY OF PRESENT ILLNESS: This is an elderly female currently is in the bed, had a fall this morning, fall from the bed and lying down on the floor. The patient is alert, oriented, no complaints. PHYSICAL EXAMINATION: VITAL SIGNS: Blood pressure is 130/70, pulse 74, respirations 18, and no fever. HEENT: NAD. CHEST: Bilaterally clear. CARDIOVASCULAR: Regular rhythm. ABDOMEN: Soft. EXTREMITIES: CCE. NEUROLOGICAL: No focal deficit. ASSESSMENT AND PLAN: 1. Fall. 2. Hemorrhoids. 3. Gastrointestinal bleed. 4. Dysphagia. 5. We will continue current diet. Start some liquid diet and continue current treatment and PT, OT, neuro check. COVID is pending. Juan Aragon M.D. DR: Maldonado JOB#: [id number] CC:
--- NOTE | 2020-01-28 23:43 | Initial Psychiatric Evaluation ---
Psychiatry Consultation Psychiatry Consultation Chief Complaint: Gastrointestinal Bleed Allergies: Coded Allergies: No Known Allergies (Unverified , 01/26/20) Medication History Scheduled Ferrous Sulfate* (Ferrous Sulfate*), 325 MG ORAL DAILY, (Reported) Levetiracetam (Keppra), 500 MG ORAL EVERY 12 HOURS, (Reported) Lorazepam* (Ativan*), 0.5 MG ORAL THREE TIMES A DAY, (Reported) Pantoprazole (Pantoprazole), 40 MG ORAL DAILY, (Reported) Rifaximin* (Xifaxan*), 550 MG ORAL TWICE A DAY, (Reported) Scheduled PRN Acetaminophen* (Acetaminophen 325MG Tablet*), 325 MG ORAL Q4H PRN for For Pain Level <=5, (Reported) Hydrocodone Bit/Acetaminophen 5-325* ([place] 5-325 Tablet*), 1 TAB ORAL Q4H PRN for Pain Scale (6-10), (Reported) Ondansetron (Zofran), 4 MG ORAL Q6H PRN for Nausea & Vomiting, (Reported) Miscellaneous Medications Ketorolac Tromethamine (Ketorolac Tromethamine), 15 MG IJ, (Reported) Lactulose (Lactulose), 20 GM PO, (Reported) Objective Data Height (Feet): 5 Height (Inches): 4.00 Weight (Pounds): 109 Melisa Ceron MD January 28, 2020 23:42
[2020-01-29] VITALS: BP 100/64
--- NOTE | 2020-01-29 | NUR ---
NURSE NOTES: was endorsed by the morning that the patient is confused. still awake at the this time. she kept on pressing the call light and talks about random stuffs. per patient" i want the video. there is 2, the blue and i forgot the other one. i need that before i will leave tomorrow. what time are you gonna bring it 5:00 or 7:00 so that i'll be awake tomorrow." reality orientation rendered.assisted to bed. advised patient to get some rest and sleep.
--- NOTE | 2020-01-29 02:00 | NUR ---
NURSE NOTES: patient is still awake, with the same complaints regarding the video. reality orientation rendered. tried to get iv line, patient refused. charge nurse made aware
[2020-01-29 04:00] VITALS: BP 100/62
[2020-01-29] MEDS: NS w/KCl 20mEq 1000ml 1,000 ML IV SCH ×2 (04:00→21:15)
--- NOTE | 2020-01-29 07:18 | General Progress Note ---
Assessment/Plan Assessment/Plan: cirrhosis rectal prolapse>>> reduced by surg yesterday hemorrhoids psych ppi abd us hepatitis panel anusol hc surg consult appreciated fu H&H>>> stable GI procedures on hold fu ammonia levels Subjective Allergies: Coded Allergies: No Known Allergies (Unverified , 01/26/20) Objective Last 24 Hour Vital Signs Date Time Temp Pulse Resp B/P (MAP) Pulse Ox O2 Delivery O2 Flow Rate FiO2 01/29/20 04:00 97.9 68 18 100/62 (75) 97 01/29/20 00:00 98.2 70 20 100/64 (76) 96 01/28/20 21:00 Room Air 01/28/20 20:00 97.9 65 18 101/60 (74) 96 01/28/20 16:00 96.6 70 18 97/57 (70) 98 01/28/20 12:00 97.7 78 18 104/66 (79) 96 01/28/20 09:05 Room Air 01/28/20 08:00 97.6 71 20 105/69 (81) 99 Intake and Output 01/28/20 01/29/20 19:00 07:00 Intake Total 440 ml 200 ml Balance 440 ml 200 ml Intake Oral 440 ml 200 ml # Voids 3 3 # Bowel Movements 2 Height (Feet): 5 Height (Inches): 4.00 Weight (Pounds): 109 General Appearance: no apparent distress EENT: normal ENT inspection Neck: supple Cardiovascular: normal rate Respiratory/Chest: decreased breath sounds Abdomen: normal bowel sounds, non tender, soft Extremities: non-tender Jose Maria Ge MD January 29, 2020 07:18
--- NOTE | 2020-01-29 07:20 | NUR ---
NURSE NOTES: Received patient A/A/OX3, confused. swazi speaking, mumbles. wanders. ambulates with a supervision. fall risk implemented. yellow socks/ gown applied. NO acute cardio-resp distress noted. Bed in lowest position. siderails are up x3. No IV access and refused to be reinserted. Call light within reach. Will continue to monitor.
--- NOTE | 2020-01-29 07:38 | NUR ---
HAND-OFF: Report given to alpa raymundo.
[2020-01-29 08:00] VITALS: BP 108/65
[2020-01-29] MEDS: LORazepam 0.5mg tab ORAL SCH ×3 (08:29→17:27)
[2020-01-29] MEDS: Hydrocortisone 25mg supp RECTAL SCH ×2 (08:31→17:27)
--- NOTE | 2020-01-29 08:56 | Pulmonology Progress Note ---
Assessment/Plan Assessment/Plan IMPRESSION: 1. Lower GI bleed. 2. Hemorrhoids. 3. Rectal prolapse. 4. Liver cirrhosis. 5. Thrombocytopenia. 6. Psych disorder. DISCUSSION: Continue home medications. Consult surgery and GI. I will follow as sampler and test preparer. Saturating well on RA Art Arteaga M.D. Subjective ROS Limited/Unobtainable: No Interval Events: None new Constitutional: Reports: no symptoms HEENT: Repors: no symptoms Respiratory: Reports: no symptoms Cardiovascular: Reports: no symptoms Gastrointestinal/Abdominal: Reports: no symptoms Allergies: Coded Allergies: No Known Allergies (Unverified , 01/26/20) Objective Last 24 Hour Vital Signs Date Time Temp Pulse Resp B/P (MAP) Pulse Ox O2 Delivery O2 Flow Rate FiO2 01/29/20 04:00 97.9 68 18 100/62 (75) 97 01/29/20 00:00 98.2 70 20 100/64 (76) 96 01/28/20 21:00 Room Air 01/28/20 20:00 97.9 65 18 101/60 (74) 96 01/28/20 16:00 96.6 70 18 97/57 (70) 98 01/28/20 12:00 97.7 78 18 104/66 (79) 96 01/28/20 09:05 Room Air Intake and Output 01/28/20 01/29/20 19:00 07:00 Intake Total 440 ml 200 ml Balance 440 ml 200 ml Intake Oral 440 ml 200 ml # Voids 3 3 # Bowel Movements 2 General Appearance: no acute distress HEENT: normocephalic Respiratory/Chest: chest wall non-tender, lungs clear Cardiovascular: normal peripheral pulses Abdomen: normal bowel sounds Microbiology Date/Time Source Procedure Growth Status 01/26/20 21:22 Blood Blood Culture - Preliminary NO GROWTH AFTER 48 HOURS Resulted 01/26/20 21:00 Blood Blood Culture - Preliminary NO GROWTH AFTER 48 HOURS Resulted 01/26/20 21:34 Nasal Nares MRSA Culture - Final NO METHICILLIN RESISTANT STAPH AUREUS... Complete 01/26/20 21:34 Rectum - Final NO CARBAPENEM-RESISTANT ENTEROBACTERI... Complete 01/26/20 21:34 Rectum VRE Culture - Final NO VANCOMYCIN RESISTANT ENTEROCOCCUS ... Complete Current Medications Medications (Trade) Dose Ordered Sig/Pilar Route PRN Reason Start Time Stop Time Status Last Admin Dose Admin Acetaminophen (Tylenol) 325 mg Q4H PRN ORAL For Pain Level <=5 01/27/20 10:30 02/26/20 10:29 Acetaminophen/ Hydrocodone Bitart ([place] 5/325) 1 tab Q4H PRN ORAL Moderate Pain (Pain Scale 4-6) 01/27/20 10:30 02/03/20 10:29 Dextrose (Dextrose 50%) 25 ml Q30M PRN IV Hypoglycemia 01/27/20 10:30 04/26/20 10:29 Dextrose (Dextrose 50%) 50 ml Q30M PRN IV Hypoglycemia 01/27/20 10:30 04/26/20 10:29 Escitalopram Oxalate (Lexapro) 10 mg DAILY ORAL 01/28/20 13:00 02/27/20 12:59 01/29/20 08:30 Ferrous Sulfate (Feosol) 325 mg DAILY ORAL 01/28/20 09:00 04/27/20 08:59 01/29/20 08:29 Hydrocortisone (Anusol HC) 25 mg TWICE A DAY RECTAL 01/27/20 18:00 04/26/20 17:59 01/28/20 08:15 Levetiracetam (Keppra) 500 mg EVERY 12 HOURS ORAL 01/27/20 21:00 02/26/20 20:59 01/29/20 08:29 Lorazepam (Ativan) 0.5 mg THREE TIMES A DAY ORAL 01/27/20 13:00 02/03/20 12:59 01/29/20 08:29 Ondansetron HCl (Zofran) 4 mg Q6H PRN ORAL Nausea & Vomiting 01/27/20 10:30 02/26/20 10:29 Pantoprazole (Protonix) 40 mg DAILY ORAL 01/28/20 09:00 02/27/20 08:59 01/29/20 08:30 Potassium Chloride/Sodium Chloride 1,000 ml @ 50 mls/hr Q20H IV 01/27/20 12:00 02/26/20 11:59 01/27/20 12:34 Rifaximin (Xifaxan) 550 mg TWICE A DAY ORAL 01/27/20 18:00 02/03/20 17:59 01/29/20 08:30 Art Arteaga MD January 29, 2020 08:56
--- NOTE | 2020-01-29 10:58 | Surgery Progress Note ---
Surgery Progress Note Subjective Additional Comments doing well comfortable no n/v/f/c labs stable no complaints Objective Last 24 Hour Vital Signs Date Time Temp Pulse Resp B/P (MAP) Pulse Ox O2 Delivery O2 Flow Rate FiO2 01/29/20 09:00 Room Air 01/29/20 08:00 98.0 72 20 108/65 (79) 98 01/29/20 04:00 97.9 68 18 100/62 (75) 97 01/29/20 00:00 98.2 70 20 100/64 (76) 96 01/28/20 21:00 Room Air 01/28/20 20:00 97.9 65 18 101/60 (74) 96 01/28/20 16:00 96.6 70 18 97/57 (70) 98 01/28/20 12:00 97.7 78 18 104/66 (79) 96 I&O Intake and Output 01/28/20 01/29/20 19:00 07:00 Intake Total 440 ml 200 ml Balance 440 ml 200 ml Intake Oral 440 ml 200 ml # Voids 3 3 # Bowel Movements 2 Cardiovascular: RSR Respiratory: clear Abdomen: soft, non-tender, present bowel sounds Extremities: no edema, no tenderness, no cyanosis Plan Problems: (1) Gastrointestinal hemorrhage Assessment & Plan: 59-year-old female with history of liver cirrhosis, rectal prolapse, psychiatric disorder, multiple comorbidities presented with potential GI bleed is noted to have some blood. Currently no bleeding. Rectal prolapse is reduced. No large hemorrhoids noted. No nausea vomiting fever chills. She is fairly present and comfortable at this time. Labs noted. Hemoglobin stable. Trend labs. Okay for diet from surgical standpoint Ultrasound abdomen No acute surgical intervention planned will follow with recommendations and serial examinations thank you for let me participate in patient's care stable comfortable (2) Suspected COVID-19 virus infection (3) Gastrointestinal bleeding Osmin Minaya January 29, 2020 10:57
[2020-01-29 12:00] VITALS: BP 110/69
[2020-01-29 16:00] VITALS: BP 97/64
--- NOTE | 2020-01-29 19:19 | NUR ---
HAND-OFF: Report given to Harvey.
--- NOTE | 2020-01-29 19:19 | NUR ---
NURSE NOTES: Report received from Marjorie POMPA. Patient is awake and alert x 2. Patient is able to ambulate with a steady gait, however patient is a high fall risk due to recent fall endorsed by Marjorie POMPA. Educated patient to call when needing assistance. Patient showed understanding. pathologist assistant aware of previous fall. Bed locked and alarmed. Call light in reach. Patient noted to have no IV access. Patient is refusing IV, MD aware per Marjorie POMPA. Patient noted to be on contact and droplet precautions due to covid 19 rule out. Patient was test for covid 19 on January 26, 2020, test results still pending. Will continue to follow plan of care.
[2020-01-29 20:00] VITALS: BP 95/54
--- NOTE | 2020-01-29 23:00 | Progress Note ---
DATE: 01/29/2020 SUBJECTIVE: This is an elderly female, currently standing on the door and comfortable, no distress. PHYSICAL EXAMINATION: VITAL SIGNS: Blood pressure is diffusing. ASSESSMENT AND PLAN: The patient is physically doing fine, stating waiting for COVID result and DC plan tomorrow. The patient also has history of fall yesterday. Continue current treatment. Juan Aragon M.D. DR: Maldonado JOB#: [id number] CC:
[2020-01-30] VITALS (14 sets, daily range): BP systolic 93–132; BP diastolic 53–69
--- NOTE | 2020-01-30 04:09 | NUR ---
NURSE NOTES: Patient got up out of bed for second time this shift. Bed alarm alarmed both times. Both times Harvey RN educated patient to use call light when needing to get up. Patient verbalized and showed understanding. Patient appears to forget limitations. Bed locked, in lowest position, and alarmed. Call light in reach. Will continue to follow plan of care.
--- NOTE | 2020-01-30 06:45 | General Progress Note ---
Assessment/Plan Assessment/Plan: cirrhosis rectal prolapse>>> reduced by surg yesterday hemorrhoids psych ppi hepatitis panel>>> neg anusol hc surg consult appreciated fu H&H>>> stable GI procedures on hold fu ammonia levels Subjective ROS Limited/Unobtainable: No Allergies: Coded Allergies: No Known Allergies (Unverified , 01/26/20) Objective Last 24 Hour Vital Signs Date Time Temp Pulse Resp B/P (MAP) Pulse Ox O2 Delivery O2 Flow Rate FiO2 01/30/20 04:00 97.4 78 20 132/63 (86) 95 01/30/20 00:00 97.3 62 18 100/53 (69) 96 01/29/20 21:00 Room Air 01/29/20 20:00 97.5 65 18 95/54 (68) 95 01/29/20 16:00 97.2 67 18 97/64 (75) 97 01/29/20 12:00 98.0 74 19 110/69 (83) 98 01/29/20 09:00 Room Air 01/29/20 08:00 98.0 72 20 108/65 (79) 98 Intake and Output 01/29/20 01/30/20 19:00 07:00 Intake Total 480 ml Balance 480 ml Intake Oral 480 ml # Voids 6 2 # Bowel Movements 1 Height (Feet): 5 Height (Inches): 4.00 Weight (Pounds): 109 General Appearance: alert EENT: normal ENT inspection Neck: supple Cardiovascular: normal rate Respiratory/Chest: decreased breath sounds Abdomen: normal bowel sounds, non tender, soft Extremities: normal range of motion, non-tender Jose Maria Ge MD January 30, 2020 06:44
--- NOTE | 2020-01-30 07:28 | NUR ---
HAND-OFF: Report given to Osvaldo POMPA. Endorsed that patient is a high fall risk. Endorsed that patient had a fall this admission. Endorsed that patient does not call to get up. Patient in stable condition.
--- NOTE | 2020-01-30 07:31 | NUR ---
NURSE NOTES: received report from ALETHA Gabriel. patient in bed. sleeping. no respiratory distress noted. no facial grimacing. pending covid result swabbed on 01/25/20. contact+droplet precaution PUI covid. ppe at all times. fall risk. episode of fall on 01/28/20. yellow socks on. neuro check. bed in the lowest position and locked. call light within reach. alarm on. close monitor. will continue to provide plan of care.
[2020-01-30 07:44] LABS: ALANINE AMINOTRANSFERASE 32 U/L (12-78); ALBUMIN 2.8 G/DL (3.4-5.0); ALBUMIN/GLOBULIN RATIO 0.8 (1.0-2.7); ALKALINE PHOSPHATASE 98 U/L (46-116); ANION GAP 7 mmol/L (5-15); ASPARTATE AMINO TRANSFERASE 30 U/L (15-37); BILIRUBIN,TOTAL 0.5 MG/DL (0.2-1.0); BLOOD UREA NITROGEN 14 mg/dL (7-18); CALCIUM 8.1 MG/DL (8.5-10.1); CARBON DIOXIDE 27 MMOL/L (21-32); CHLORIDE 111 MMOL/L (98-107); CREATININE 0.8 MG/DL (0.55-1.30); POTASSIUM 3.9 MMOL/L (3.5-5.1); SODIUM 145 MMOL/L (136-145)
[2020-01-30 08:45] LABS: HEMATOCRIT 32.6 % (37.0-47.0); HEMOGLOBIN 11.6 G/DL (12.0-16.0); MEAN CORPUSCULAR VOLUME 88 FL (80-99); PLATELET COUNT 82 K/UL (150-450); RED CELL DISTRIBUTION WIDTH 15.8 % (11.6-14.8); WHITE BLOOD COUNT 3.1 K/UL (4.8-10.8)
[2020-01-30] MEDS: Hydrocortisone 25mg supp RECTAL SCH ×2 (09:18→17:41)
[2020-01-30] MEDS: LORazepam 0.5mg tab ORAL SCH ×3 (09:19→17:41)
--- NOTE | 2020-01-30 17:15 | Pulmonology Progress Note ---
Assessment/Plan Assessment/Plan IMPRESSION: 1. Lower GI bleed. 2. Hemorrhoids. 3. Rectal prolapse. 4. Liver cirrhosis. 5. Thrombocytopenia. 6. Psych disorder. DISCUSSION: Continue home medications. Consult surgery and GI. I will follow as testing coordinator. Saturating well on RA Art Arteaga M.D. Subjective ROS Limited/Unobtainable: No Interval Events: None new Constitutional: Reports: no symptoms HEENT: Repors: no symptoms Respiratory: Reports: no symptoms Cardiovascular: Reports: no symptoms Gastrointestinal/Abdominal: Reports: no symptoms Allergies: Coded Allergies: No Known Allergies (Unverified , 01/26/20) Objective Last 24 Hour Vital Signs Date Time Temp Pulse Resp B/P (MAP) Pulse Ox O2 Delivery O2 Flow Rate FiO2 01/30/20 16:00 98.2 66 20 98/66 (77) 96 01/30/20 12:00 97.9 69 20 98/59 (72) 96 01/30/20 09:00 Room Air 01/30/20 08:00 97.4 76 20 97/61 (73) 96 01/30/20 04:00 97.4 78 20 132/63 (86) 95 01/30/20 00:00 97.3 62 18 100/53 (69) 96 01/29/20 21:00 Room Air 01/29/20 20:00 97.5 65 18 95/54 (68) 95 Intake and Output 01/29/20 01/30/20 19:00 07:00 Intake Total 480 ml Balance 480 ml Intake Oral 480 ml # Voids 6 2 # Bowel Movements 1 General Appearance: no acute distress HEENT: normocephalic Respiratory/Chest: chest wall non-tender, lungs clear Cardiovascular: normal peripheral pulses Abdomen: normal bowel sounds Laboratory Tests 01/30/20 06:00: White Blood Count 3.1L, Red Blood Count 3.70L, Hemoglobin 11.6L, Hematocrit 32.6L, Mean Corpuscular Volume 88, Mean Corpuscular Hemoglobin 31.4H, Mean Corpuscular Hemoglobin Concent 35.7, Red Cell Distribution Width 15.8H, Platelet Count 82L, Mean Platelet Volume 5.6L, Neutrophils (%) (Auto) , Lymphocytes (%) (Auto) , Monocytes (%) (Auto) , Eosinophils (%) (Auto) , Basophils (%) (Auto) , Differential Total Cells Counted 100, Neutrophils % ( Manual) 53, Lymphocytes % (Manual) 38, Monocytes % (Manual) 8, Eosinophils % ( Manual) 1, Basophils % (Manual) 0, Band Neutrophils 0, Platelet Estimate DecreasedL, Platelet Morphology Normal, Anisocytosis 1+, Sodium Level 145, Potassium Level 3.9, Chloride Level 111H, Carbon Dioxide Level 27, Anion Gap 7, Blood Urea Nitrogen 14, Creatinine 0.8, Estimat Glomerular Filtration Rate > 60 , Glucose Level 89, Calcium Level 8.1L, Total Bilirubin 0.5, Aspartate Amino Transf (AST/SGOT) 30, Alanine Aminotransferase (ALT/SGPT) 32, Alkaline Phosphatase 98, Total Protein 6.5, Albumin 2.8L, Globulin 3.7, Albumin/Globulin Ratio 0.8L Current Medications Medications (Trade) Dose Ordered Sig/Pilar Route PRN Reason Start Time Stop Time Status Last Admin Dose Admin Acetaminophen (Tylenol) 325 mg Q4H PRN ORAL For Pain Level <=5 01/27/20 10:30 02/26/20 10:29 Acetaminophen/ Hydrocodone Bitart ([place] 5/325) 1 tab Q4H PRN ORAL Moderate Pain (Pain Scale 4-6) 01/27/20 10:30 02/03/20 10:29 Dextrose (Dextrose 50%) 25 ml Q30M PRN IV Hypoglycemia 01/27/20 10:30 04/26/20 10:29 Dextrose (Dextrose 50%) 50 ml Q30M PRN IV Hypoglycemia 01/27/20 10:30 04/26/20 10:29 Escitalopram Oxalate (Lexapro) 10 mg DAILY ORAL 01/28/20 13:00 02/27/20 12:59 01/30/20 09:18 Ferrous Sulfate (Feosol) 325 mg DAILY ORAL 01/28/20 09:00 04/27/20 08:59 01/30/20 09:18 Hydrocortisone (Anusol HC) 25 mg TWICE A DAY RECTAL 01/27/20 18:00 04/26/20 17:59 01/30/20 09:18 Levetiracetam (Keppra) 500 mg EVERY 12 HOURS ORAL 01/27/20 21:00 02/26/20 20:59 01/30/20 09:19 Lorazepam (Ativan) 0.5 mg THREE TIMES A DAY ORAL 01/27/20 13:00 02/03/20 12:59 01/30/20 12:43 Ondansetron HCl (Zofran) 4 mg Q6H PRN ORAL Nausea & Vomiting 01/27/20 10:30 02/26/20 10:29 Pantoprazole (Protonix) 40 mg DAILY ORAL 01/28/20 09:00 02/27/20 08:59 01/30/20 09:18 Potassium Chloride/Sodium Chloride 1,000 ml @ 50 mls/hr Q20H IV 01/27/20 12:00 02/26/20 11:59 01/27/20 12:34 Rifaximin (Xifaxan) 550 mg TWICE A DAY ORAL 01/27/20 18:00 02/03/20 17:59 01/30/20 09:18 Art Arteaga MD January 30, 2020 17:15
--- NOTE | 2020-01-30 19:25 | NUR ---
NURSE NOTES: patient was found on the floor. patient said she was trying to go to the bathroom by herself and slipped from the bed. alert oriented. verbally responsive. no respiratory distress noted. mild pain. able to move all extremities without difficulty. vs 106/64/66/98.6F/96%. notified Mahesh Gay. no new order at this time.
--- NOTE | 2020-01-30 19:25 | NUR ---
NURSE NOTES: called rapid response per hospital protocol.
--- NOTE | 2020-01-30 19:30 | NUR ---
HAND-OFF: Report given to ALETHA Sidhu.
--- NOTE | 2020-01-30 19:35 | NUR ---
NURSE NOTES: Received report from ALETHA Riley. AAO x 2, confuse, on room air. Able to wake with unsteady gait. High risk fall and set bed alarm zone 2. Pt was found on the floor earlier. Fall education given and demonstrated how to use the call light. Pt understood and verbally responsive. No IV access noted and MD aware. Isolation maintained. Bed locked, lowest position, alarm on, side rails up, call light within reach. Will continue to monitor.
[2020-01-30] MEDS: NS w/KCl 20mEq 1000ml 1,000 ML IV SCH (20:00)
--- NOTE | 2020-01-30 21:35 | NUR ---
NURSE NOTES: Pt is off unit to take head CT.
--- NOTE | 2020-01-30 21:35 | Surgery Progress Note ---
Surgery Progress Note Subjective Additional Comments no acute events comfortable no complaints labs okay no bleeding Objective Last 24 Hour Vital Signs Date Time Temp Pulse Resp B/P (MAP) Pulse Ox O2 Delivery O2 Flow Rate FiO2 01/30/20 20:05 98.6 96 01/30/20 20:00 98.2 64 18 105/66 (79) 95 01/30/20 17:30 98.6 66 18 106/64 (78) 96 01/30/20 16:00 98.2 66 20 98/66 (77) 96 01/30/20 12:00 97.9 69 20 98/59 (72) 96 01/30/20 09:00 Room Air 01/30/20 08:00 97.4 76 20 97/61 (73) 96 01/30/20 04:00 97.4 78 20 132/63 (86) 95 01/30/20 00:00 97.3 62 18 100/53 (69) 96 I&O Intake and Output 01/29/20 01/30/20 19:00 07:00 Intake Total 480 ml Balance 480 ml Intake Oral 480 ml # Voids 6 2 # Bowel Movements 1 Cardiovascular: RSR Respiratory: clear Abdomen: soft, non-tender, present bowel sounds Extremities: no tenderness, no cyanosis Laboratory Tests Test 01/30/20 06:00 White Blood Count 3.1 K/UL (4.8-10.8) L Red Blood Count 3.70 M/UL (4.20-5.40) L Hemoglobin 11.6 G/DL (12.0-16.0) L Hematocrit 32.6 % (37.0-47.0) L Mean Corpuscular Volume 88 FL (80-99) Mean Corpuscular Hemoglobin 31.4 PG (27.0-31.0) H Mean Corpuscular Hemoglobin Concent 35.7 G/DL (32.0-36.0) Red Cell Distribution Width 15.8 % (11.6-14.8) H Platelet Count 82 K/UL (150-450) L Mean Platelet Volume 5.6 FL (6.5-10.1) L Neutrophils (%) (Auto) % (45.0-75.0) Lymphocytes (%) (Auto) % (20.0-45.0) Monocytes (%) (Auto) % (1.0-10.0) Eosinophils (%) (Auto) % (0.0-3.0) Basophils (%) (Auto) % (0.0-2.0) Differential Total Cells Counted 100 Neutrophils % (Manual) 53 % (45-75) Lymphocytes % (Manual) 38 % (20-45) Monocytes % (Manual) 8 % (1-10) Eosinophils % (Manual) 1 % (0-3) Basophils % (Manual) 0 % (0-2) Band Neutrophils 0 % (0-8) Platelet Estimate Decreased L Platelet Morphology Normal Anisocytosis 1+ Sodium Level 145 MMOL/L (136-145) Potassium Level 3.9 MMOL/L (3.5-5.1) Chloride Level 111 MMOL/L (98-107) H Carbon Dioxide Level 27 MMOL/L (21-32) Anion Gap 7 mmol/L (5-15) Blood Urea Nitrogen 14 mg/dL (7-18) Creatinine 0.8 MG/DL (0.55-1.30) Estimat Glomerular Filtration Rate > 60 mL/min (>60) Glucose Level 89 MG/DL (74-106) Calcium Level 8.1 MG/DL (8.5-10.1) L Total Bilirubin 0.5 MG/DL (0.2-1.0) Aspartate Amino Transf (AST/SGOT) 30 U/L (15-37) Alanine Aminotransferase (ALT/SGPT) 32 U/L (12-78) Alkaline Phosphatase 98 U/L (46-116) Total Protein 6.5 G/DL (6.4-8.2) Albumin 2.8 G/DL (3.4-5.0) L Globulin 3.7 g/dL Albumin/Globulin Ratio 0.8 (1.0-2.7) L Plan Problems: (1) Gastrointestinal hemorrhage Assessment & Plan: 59-year-old female with history of liver cirrhosis, rectal prolapse, psychiatric disorder, multiple comorbidities presented with potential GI bleed is noted to have some blood. Currently no bleeding. Rectal prolapse is reduced. No large hemorrhoids noted. No nausea vomiting fever chills. She is fairly present and comfortable at this time. Labs noted. Hemoglobin stable. Trend labs. Okay for diet from surgical standpoint Ultrasound abdomen No acute surgical intervention planned will follow with recommendations and serial examinations thank you for let me participate in patient's care stable comfortable (2) Suspected COVID-19 virus infection (3) Gastrointestinal bleeding Osmin Minaya January 30, 2020 21:35
--- NOTE | 2020-01-30 22:03 | Diagnostic Imaging Report ---
EXAM: CT Head Without Intravenous Contrast CLINICAL HISTORY: FALL TECHNIQUE: Axial computed tomography images of the head/brain without intravenous contrast. CTDI is 53.4 mGy and DLP is 965.4 mGy-cm. One or more of the following dose reduction techniques were used: automated exposure control, adjustment of the mA and/or kV according to patient size, use of iterative reconstruction technique. COMPARISON: No relevant prior studies available. FINDINGS: Brain: No acute infarct, hemorrhage, mass or edema. Chronic small vessel ischemic disease and senescent changes. Encephalomalacia within the inferior frontal lobes, right greater than left. Ventricles: Unremarkable. No ventriculomegaly. Bones/joints: Unremarkable. No acute calvarial fracture. Soft tissues: Unremarkable. Sinuses: Unremarkable as visualized. Mastoid air cells: Unremarkable as visualized. IMPRESSION: No acute findings in the head/brain.
[2020-01-31] VITALS (7 sets, daily range): BP systolic 92–104; BP diastolic 55–63
--- NOTE | 2020-01-31 01:44 | Progress Note ---
DATE: 01/30/2020 SUBJECTIVE: This is a 59-year-old female, who came to the emergency room for having altered mental status and fever and rectal bleeding. The patient was MRI. The patient has episode of again fall this morning and she is slightly confused. The patient is currently otherwise . PHYSICAL EXAMINATION: VITAL SIGNS: Stable. Physically, she has a slight bump on the forehead after fall, but she is alert and oriented x3. The patient is able to walk. The patient is waiting for COVID test and possible discharge plan, added Colace as well as stool softener and hemorrhoids, gastrointestinal is on consult. Juan Aragon M.D. DR: LITO JOB#: [id number] CC:
[2020-01-31 06:39] LABS: HEMATOCRIT 33.7 % (37.0-47.0); HEMOGLOBIN 11.8 G/DL (12.0-16.0); MEAN CORPUSCULAR VOLUME 88 FL (80-99); PLATELET COUNT 82 K/UL (150-450); RED BLOOD COUNT 3.84 M/UL (4.20-5.40); RED CELL DISTRIBUTION WIDTH 15.9 % (11.6-14.8); WHITE BLOOD COUNT 2.9 K/UL (4.8-10.8)
[2020-01-31 07:01] LABS: ALANINE AMINOTRANSFERASE 29 U/L (12-78); ALBUMIN 2.8 G/DL (3.4-5.0); ALBUMIN/GLOBULIN RATIO 0.7 (1.0-2.7); ALKALINE PHOSPHATASE 101 U/L (46-116); ANION GAP 7 mmol/L (5-15); ASPARTATE AMINO TRANSFERASE 30 U/L (15-37); BILIRUBIN,TOTAL 0.5 MG/DL (0.2-1.0); BLOOD UREA NITROGEN 13 mg/dL (7-18); CALCIUM 8.9 MG/DL (8.5-10.1); CARBON DIOXIDE 25 MMOL/L (21-32); CHLORIDE 110 MMOL/L (98-107); CREATININE 0.8 MG/DL (0.55-1.30); POTASSIUM 3.6 MMOL/L (3.5-5.1); SODIUM 142 MMOL/L (136-145)
[2020-01-31 07:03] LABS: AMMONIA 158 umol/L (11-32)
--- NOTE | 2020-01-31 07:44 | NUR ---
HAND-OFF: Report given to ALETHA Montalvo.
--- NOTE | 2020-01-31 08:08 | NUR ---
NURSE NOTES: Patient alert x2, confused; on room air, no sing of distress and shortness of breath; NO IV Access, MD aware; side rails up x2, breaks engaged, bed at lowest position, bed alarm on; side rails padded for seizure percussion; call light within reach; will keep monitoring.
[2020-01-31] MEDS: LORazepam 0.5mg tab ORAL SCH ×2 (09:02→12:09)
[2020-01-31] MEDS: Hydrocortisone 25mg supp RECTAL SCH (09:02)
--- NOTE | 2020-01-31 09:43 | NUR ---
DISCHARGE PLANNING PATIENT HAS BEEN REFERRED BACK TO [facility] P: [phone] F: [phone] Addendum: 01/31/20 at 1159 by MAI WHITE LVN LVN FOLLOW UP WITH [facility]. C[employer] SUPERVISOR OLIVER NOT AVAILABLE AT TIME OF CALL. MESSAGE LEFT REQUESTING CALL BACK. WILL CONTINUE TO FOLLOW UP.
--- NOTE | 2020-01-31 10:15 | General Progress Note ---
Assessment/Plan Assessment/Plan: cirrhosis rectal prolapse>>> reduced by surg yesterday hemorrhoids psych ppi hepatitis panel>>> neg anusol hc surg consult appreciated fu H&H>>> stable GI procedures on hold fu ammonia levels add lactulose Subjective ROS Limited/Unobtainable: No Allergies: Coded Allergies: No Known Allergies (Unverified , 01/26/20) Objective Last 24 Hour Vital Signs Date Time Temp Pulse Resp B/P (MAP) Pulse Ox O2 Delivery O2 Flow Rate FiO2 01/31/20 08:00 97.7 75 19 97/60 (72) 98 01/31/20 05:20 97.3 57 19 95/55 (68) 95 01/31/20 04:00 97.8 71 19 103/60 (74) 92 01/31/20 01:23 98.0 69 20 101/63 (76) 93 01/30/20 23:30 97.9 65 20 93/61 (72) 91 01/30/20 22:30 98.9 70 19 109/69 (82) 94 01/30/20 21:30 98.0 72 19 101/56 (71) 93 01/30/20 21:00 97.9 65 20 103/61 (75) 94 01/30/20 21:00 Room Air 01/30/20 21:00 Room Air 01/30/20 20:30 98.5 67 20 110/69 (83) 94 01/30/20 20:05 98.6 96 01/30/20 20:00 98.2 64 18 105/66 (79) 95 01/30/20 19:30 66 18 96 01/30/20 19:30 98.6 66 18 106/64 (78) 96 01/30/20 16:00 98.2 66 20 98/66 (77) 96 01/30/20 12:00 97.9 69 20 98/59 (72) 96 Intake and Output 01/30/20 01/31/20 19:00 07:00 Intake Total 600 ml 360 ml Balance 600 ml 360 ml Intake Oral 600 ml 360 ml # Voids 3 5 # Bowel Movements 1 Laboratory Tests 01/31/20 06:05: White Blood Count 2.9L, Red Blood Count 3.84L, Hemoglobin 11.8L, Hematocrit 33.7L, Mean Corpuscular Volume 88, Mean Corpuscular Hemoglobin 30.8, Mean Corpuscular Hemoglobin Concent 35.1, Red Cell Distribution Width 15.9H, Platelet Count 82L, Mean Platelet Volume 5.8L, Neutrophils (%) (Auto) , Lymphocytes (%) (Auto) , Monocytes (%) (Auto) , Eosinophils (%) (Auto) , Basophils (%) (Auto) , Differential Total Cells Counted 100, Neutrophils % ( Manual) 46, Lymphocytes % (Manual) 45, Monocytes % (Manual) 5, Eosinophils % ( Manual) 2, Basophils % (Manual) 2, Band Neutrophils 0, Platelet Estimate DecreasedL, Platelet Morphology Normal, Red Blood Cell Morphology Normal, Sodium Level 142, Potassium Level 3.6, Chloride Level 110H, Carbon Dioxide Level 25, Anion Gap 7, Blood Urea Nitrogen 13, Creatinine 0.8, Estimat Glomerular Filtration Rate > 60, Glucose Level 90, Calcium Level 8.9, Total Bilirubin 0.5, Aspartate Amino Transf (AST/SGOT) 30, Alanine Aminotransferase ( ALT/SGPT) 29, Alkaline Phosphatase 101, Ammonia 158H, Total Protein 6.6, Albumin 2.8L, Globulin 3.8, Albumin/Globulin Ratio 0.7L Height (Feet): 5 Height (Inches): 4.00 Weight (Pounds): 109 General Appearance: lethargic EENT: normal ENT inspection Neck: supple Cardiovascular: normal rate Respiratory/Chest: decreased breath sounds Abdomen: normal bowel sounds, non tender, soft Extremities: non-tender Jose Maria Ge MD January 31, 2020 10:15
--- NOTE | 2020-01-31 10:47 | NUR ---
RD ASSESSMENT & RECOMMENDATIONS SEE CARE ACTIVITY FOR COMPLETE ASSESSMENT DAILY ESTIMATED NEEDS: Needs based on Liver dz 49.5kg 25-35 kcals/kg 0031-3785 total kcals 1-1.5 g protein/kg 50-74 g total protein Fluid per MD NUTRITION DIAGNOSIS: Decreased sodium needs r/t liver dysfunction as evidenced by h/o cirrhosis, elev ammonia. PO DIET RECOMMENDATIONS: Maintain Low Na diet ADDITIONAL RECOMMENDATIONS: 1) Obtain a standing weight as able 2) Add Ensure 1 bottle daily
--- NOTE | 2020-01-31 10:49 | NUR ---
*-* INSURANCE *-* UPDATED CLINICALS AND REVIEWS HAVE BEEN FAXED TO: [employer]HEL[employer] RAMIREZ NCM:RYAN #[phone] P: [phone] [employer] Vasiliy Baron [phone]
--- NOTE | 2020-01-31 11:53 | Pulmonology Progress Note ---
Assessment/Plan Assessment/Plan IMPRESSION: 1. Lower GI bleed. 2. Hemorrhoids. 3. Rectal prolapse. 4. Liver cirrhosis. 5. Thrombocytopenia. 6. Psych disorder. DISCUSSION: Continue home medications. Seen by surgery and GI. I will follow as head sawyer. Saturating well on RA Art Arteaga M.D. Subjective ROS Limited/Unobtainable: No Interval Events: None new Constitutional: Reports: no symptoms HEENT: Repors: no symptoms Respiratory: Reports: no symptoms Cardiovascular: Reports: no symptoms Gastrointestinal/Abdominal: Reports: no symptoms Allergies: Coded Allergies: No Known Allergies (Unverified , 01/26/20) Objective Last 24 Hour Vital Signs Date Time Temp Pulse Resp B/P (MAP) Pulse Ox O2 Delivery O2 Flow Rate FiO2 01/31/20 09:00 Room Air 01/31/20 08:00 97.7 75 19 97/60 (72) 98 01/31/20 05:20 97.3 57 19 95/55 (68) 95 01/31/20 04:00 97.8 71 19 103/60 (74) 92 01/31/20 01:23 98.0 69 20 101/63 (76) 93 01/30/20 23:30 97.9 65 20 93/61 (72) 91 01/30/20 22:30 98.9 70 19 109/69 (82) 94 01/30/20 21:30 98.0 72 19 101/56 (71) 93 01/30/20 21:00 97.9 65 20 103/61 (75) 94 01/30/20 21:00 Room Air 01/30/20 21:00 Room Air 01/30/20 20:30 98.5 67 20 110/69 (83) 94 01/30/20 20:05 98.6 96 01/30/20 20:00 98.2 64 18 105/66 (79) 95 01/30/20 19:30 66 18 96 01/30/20 19:30 98.6 66 18 106/64 (78) 96 01/30/20 16:00 98.2 66 20 98/66 (77) 96 01/30/20 12:00 97.9 69 20 98/59 (72) 96 Intake and Output 01/30/20 01/31/20 19:00 07:00 Intake Total 600 ml 360 ml Balance 600 ml 360 ml Intake Oral 600 ml 360 ml # Voids 3 5 # Bowel Movements 1 General Appearance: no acute distress HEENT: normocephalic Respiratory/Chest: chest wall non-tender, lungs clear Cardiovascular: normal peripheral pulses Abdomen: normal bowel sounds Laboratory Tests 01/31/20 06:05: White Blood Count 2.9L, Red Blood Count 3.84L, Hemoglobin 11.8L, Hematocrit 33.7L, Mean Corpuscular Volume 88, Mean Corpuscular Hemoglobin 30.8, Mean Corpuscular Hemoglobin Concent 35.1, Red Cell Distribution Width 15.9H, Platelet Count 82L, Mean Platelet Volume 5.8L, Neutrophils (%) (Auto) , Lymphocytes (%) (Auto) , Monocytes (%) (Auto) , Eosinophils (%) (Auto) , Basophils (%) (Auto) , Differential Total Cells Counted 100, Neutrophils % ( Manual) 46, Lymphocytes % (Manual) 45, Monocytes % (Manual) 5, Eosinophils % ( Manual) 2, Basophils % (Manual) 2, Band Neutrophils 0, Platelet Estimate DecreasedL, Platelet Morphology Normal, Red Blood Cell Morphology Normal, Sodium Level 142, Potassium Level 3.6, Chloride Level 110H, Carbon Dioxide Level 25, Anion Gap 7, Blood Urea Nitrogen 13, Creatinine 0.8, Estimat Glomerular Filtration Rate > 60, Glucose Level 90, Calcium Level 8.9, Total Bilirubin 0.5, Aspartate Amino Transf (AST/SGOT) 30, Alanine Aminotransferase ( ALT/SGPT) 29, Alkaline Phosphatase 101, Ammonia 158H, Total Protein 6.6, Albumin 2.8L, Globulin 3.8, Albumin/Globulin Ratio 0.7L Current Medications Medications (Trade) Dose Ordered Sig/Pilar Route PRN Reason Start Time Stop Time Status Last Admin Dose Admin Acetaminophen (Tylenol) 325 mg Q4H PRN ORAL For Pain Level <=5 01/27/20 10:30 02/26/20 10:29 Acetaminophen/ Hydrocodone Bitart ([place] 5/325) 1 tab Q4H PRN ORAL Moderate Pain (Pain Scale 4-6) 01/27/20 10:30 5/20 10:29 Dextrose (Dextrose 50%) 25 ml Q30M PRN IV Hypoglycemia 01/27/20 10:30 04/26/20 10:29 Dextrose (Dextrose 50%) 50 ml Q30M PRN IV Hypoglycemia 01/27/20 10:30 04/26/20 10:29 Escitalopram Oxalate (Lexapro) 10 mg DAILY ORAL 01/28/20 13:00 02/27/20 12:59 01/31/20 09:02 Ferrous Sulfate (Feosol) 325 mg DAILY ORAL 01/28/20 09:00 04/27/20 08:59 01/31/20 09:02 Hydrocortisone (Anusol HC) 25 mg TWICE A DAY RECTAL 01/27/20 18:00 04/26/20 17:59 01/31/20 09:02 Lactulose (Cephulac) 30 gm THREE TIMES A DAY ORAL 01/31/20 13:00 03/01/20 12:59 Levetiracetam (Keppra) 500 mg EVERY 12 HOURS ORAL 01/27/20 21:00 02/26/20 20:59 01/31/20 09:02 Lorazepam (Ativan) 0.5 mg THREE TIMES A DAY ORAL 01/27/20 13:00 02/03/20 12:59 01/31/20 09:02 Ondansetron HCl (Zofran) 4 mg Q6H PRN ORAL Nausea & Vomiting 01/27/20 10:30 02/26/20 10:29 Pantoprazole (Protonix) 40 mg DAILY ORAL 01/28/20 09:00 02/27/20 08:59 01/31/20 09:02 Potassium Chloride/Sodium Chloride 1,000 ml @ 50 mls/hr Q20H IV 01/27/20 12:00 02/26/20 11:59 01/27/20 12:34 Rifaximin (Xifaxan) 550 mg TWICE A DAY ORAL 01/27/20 18:00 02/03/20 17:59 01/31/20 09:02 Art Arteaga MD January 31, 2020 11:53
[2020-01-31] MEDS ORDERED: Lactulose 20gm/30ml UDC ORAL SCH (13:00)
--- NOTE | 2020-01-31 13:25 | NUR ---
DISCHARGE PLANNING PER [facility], PATIENT ACCEPTED TO RETURN. AUTHORIZATION NEEDED FROM [facility]. PROVIDED BED ASSIGNMENT OF 206-A SKILLED CALL MADE TO DAVID @ [facility] [phone] TO REQUEST AUTH FOR SNF. STATES HE WILL OBTAIN AUTH AND CONTACT [facility] AT [facility] DIRECTLY @ [phone] TO PROVIDE AUTH FOR SNF TRANSFER. STATES HE WILL NOTIFY THIS CM WHEN AUTH IS COMPLETED. [facility]SP[facility] SET ON WILL CALL PENDING AUTH FOR SNF RETURN.
--- NOTE | 2020-01-31 15:00 | Surgery Progress Note ---
Surgery Progress Note Subjective Symptoms: improved, pain absent, tolerating diet, voiding well, passing flatus Objective Last 24 Hour Vital Signs Date Time Temp Pulse Resp B/P (MAP) Pulse Ox O2 Delivery O2 Flow Rate FiO2 01/31/20 12:00 97.8 63 18 99/60 (73) 98 01/31/20 09:20 96.4 72 19 92/60 (71) 95 01/31/20 09:00 Room Air 01/31/20 08:00 97.7 75 19 97/60 (72) 98 01/31/20 05:20 97.3 57 19 95/55 (68) 95 01/31/20 04:00 97.8 71 19 103/60 (74) 92 01/31/20 01:23 98.0 69 20 101/63 (76) 93 01/30/20 23:30 97.9 65 20 93/61 (72) 91 01/30/20 22:30 98.9 70 19 109/69 (82) 94 01/30/20 21:30 98.0 72 19 101/56 (71) 93 01/30/20 21:00 97.9 65 20 103/61 (75) 94 01/30/20 21:00 Room Air 01/30/20 21:00 Room Air 01/30/20 20:30 98.5 67 20 110/69 (83) 94 01/30/20 20:05 98.6 96 01/30/20 20:00 98.2 64 18 105/66 (79) 95 01/30/20 19:30 66 18 96 01/30/20 19:30 98.6 66 18 106/64 (78) 96 01/30/20 16:00 98.2 66 20 98/66 (77) 96 I&O Intake and Output 01/30/20 01/31/20 19:00 07:00 Intake Total 600 ml 360 ml Balance 600 ml 360 ml Intake Oral 600 ml 360 ml # Voids 3 5 # Bowel Movements 1 Cardiovascular: RSR Respiratory: clear Abdomen: soft, non-tender, present bowel sounds Extremities: no edema, no tenderness, no cyanosis Laboratory Tests Test 01/31/20 06:05 White Blood Count 2.9 K/UL (4.8-10.8) L Red Blood Count 3.84 M/UL (4.20-5.40) L Hemoglobin 11.8 G/DL (12.0-16.0) L Hematocrit 33.7 % (37.0-47.0) L Mean Corpuscular Volume 88 FL (80-99) Mean Corpuscular Hemoglobin 30.8 PG (27.0-31.0) Mean Corpuscular Hemoglobin Concent 35.1 G/DL (32.0-36.0) Red Cell Distribution Width 15.9 % (11.6-14.8) H Platelet Count 82 K/UL (150-450) L Mean Platelet Volume 5.8 FL (6.5-10.1) L Neutrophils (%) (Auto) % (45.0-75.0) Lymphocytes (%) (Auto) % (20.0-45.0) Monocytes (%) (Auto) % (1.0-10.0) Eosinophils (%) (Auto) % (0.0-3.0) Basophils (%) (Auto) % (0.0-2.0) Differential Total Cells Counted 100 Neutrophils % (Manual) 46 % (45-75) Lymphocytes % (Manual) 45 % (20-45) Monocytes % (Manual) 5 % (1-10) Eosinophils % (Manual) 2 % (0-3) Basophils % (Manual) 2 % (0-2) Band Neutrophils 0 % (0-8) Platelet Estimate Decreased L Platelet Morphology Normal Red Blood Cell Morphology Normal Sodium Level 142 MMOL/L (136-145) Potassium Level 3.6 MMOL/L (3.5-5.1) Chloride Level 110 MMOL/L (98-107) H Carbon Dioxide Level 25 MMOL/L (21-32) Anion Gap 7 mmol/L (5-15) Blood Urea Nitrogen 13 mg/dL (7-18) Creatinine 0.8 MG/DL (0.55-1.30) Estimat Glomerular Filtration Rate > 60 mL/min (>60) Glucose Level 90 MG/DL (74-106) Calcium Level 8.9 MG/DL (8.5-10.1) Total Bilirubin 0.5 MG/DL (0.2-1.0) Aspartate Amino Transf (AST/SGOT) 30 U/L (15-37) Alanine Aminotransferase (ALT/SGPT) 29 U/L (12-78) Alkaline Phosphatase 101 U/L (46-116) Ammonia 158 umol/L (11-32) H Total Protein 6.6 G/DL (6.4-8.2) Albumin 2.8 G/DL (3.4-5.0) L Globulin 3.8 g/dL Albumin/Globulin Ratio 0.7 (1.0-2.7) L Plan Problems: (1) Gastrointestinal hemorrhage Assessment & Plan: 59-year-old female with history of liver cirrhosis, rectal prolapse, psychiatric disorder, multiple comorbidities presented with potential GI bleed is noted to have some blood. Currently no bleeding. Rectal prolapse is reduced. No large hemorrhoids noted. No nausea vomiting fever chills. She is fairly present and comfortable at this time. Labs noted. Hemoglobin stable. Trend labs. Okay for diet from surgical standpoint No acute surgical intervention planned will follow with recommendations and serial examinations thank you for let me participate in patient's care stable comfortable d/c planning DAILY ESTIMATED NEEDS: Needs based on Liver dz 49.5kg 25-35 kcals/kg 8968-9406 total kcals 1-1.5 g protein/kg 50-74 g total protein Fluid per MD NUTRITION DIAGNOSIS: Decreased sodium needs r/t liver dysfunction as evidenced by h/o cirrhosis, elev ammonia. PO DIET RECOMMENDATIONS: Maintain Low Na diet ADDITIONAL RECOMMENDATIONS: 1) Obtain a standing weight as able 2) Add Ensure 1 bottle daily (2) Suspected COVID-19 virus infection (3) Gastrointestinal bleeding Osmin Minaya January 31, 2020 15:00
--- NOTE | 2020-01-31 15:26 | Diagnostic Imaging Report ---
Indication: Abdominal pain, abnormal liver function tests, history of cirrhosis Technique: Lucia-scale and duplex images of the upper abdomen were obtained Comparison: none Findings: Gallbladder demonstrate gallstones. There is apparent mild gallbladder wall thickening, gallbladder wall 4 mm in thickness; this could be an artifact of under distention but the wall appears slightly edematous. No pericholecystic fluid. Sonographic Nunn's sign is negative. Common bile duct measures 6 mm in diameter. No intrahepatic biliary ductal dilatation. Liver demonstrates coarsened echogenicity. No definite surface nodularity. No definite focal abnormality. Portal vein and hepatic veins are patent, but sluggish to and fro flow is noted in the main portal vein. Pancreas is unremarkable. The spleen is mildly enlarged, long axis dimension 13.8 cm. Left kidney measures 10.5 cm in length. Right kidney measures 9.3 cm length. Both kidneys demonstrate normal echogenicity. There is no hydronephrosis. The right kidney demonstrates an echogenic focus, likely a calyceal calculus, at the periphery of the renal sinus fat, measures 5 mm in diameter . Non-aneurysmal abdominal aorta . Impression:Coarsened hepatic echogenicity. No definite surface nodularity to suggest cirrhosis. However, sluggish to and fro flow in the main portal vein and mild splenomegaly does raise concern for portal hypertension Cholelithiasis. Questionable gallbladder wall thickening and edema, likely an artifact of under distention and/or could be edema related to hepatic disease, but the possibility of acute cholecystitis should also be considered. Consider hepatobiliary nuclear scan if there is high clinical suspicion Possible nonobstructive right renal calyceal calculus
[2020-01-31] MEDS: NS w/KCl 20mEq 1000ml 1,000 ML IV SCH (16:00)
--- NOTE | 2020-01-31 16:01 | NUR ---
NURSE NOTES: Telephone report given to Mary at [facility]; patient waiting for lease picker
--- NOTE | 2020-01-31 16:53 | NUR ---
NURSE NOTES: Patient discharge to [facility]; report given to ALETHA Hernandez at [facility]; printed package given to two ambulance personnel; patient doesn't have IV access; patient unable to sing the belonging list; patient's belongings given to ambulance personnel; left a voice message to patient's next of kin Vishal Snyder at [phone]; patient was stable upon discharge.
--- NOTE | 2020-01-31 18:00 | Progress Note ---
DATE: 01/31/2020 SUBJECTIVE: This is an elderly female came with altered mental status, dehydration, and rectal bleeding as well as hemorrhoids. GI consult was obtained, found to have hemorrhoids. Her hemoglobin stayed normal. Patient has episodes of fall at the hospital. Patient is confused. Wants to go home. Physically, she is doing fine. OBJECTIVE: VITAL SIGNS: Blood pressure 97/60, pulse 75. No fever. CHEST: Bilaterally clear. CARDIOVASCULAR: Regular rhythm. ABDOMEN: Soft. EXTREMITIES: CCE. LABORATORY DATA: Her last hemoglobin is 12.1, white counts are 2.9. Chemistry panel - BUN 13, creatinine 0.8, sodium 140, potassium 3.6. Urine is negative. ASSESSMENT: 1. Multiple falls. 2. Dementia. 3. Hemorrhoids. 4. Depression. PLAN: 1. [facility]. 2. Continue PT and OT. 3. Continue medical treatment. 4. Preparation H and stool softener. Juan Aragon M.D. DR: VIVIANE JOB#: [id number] CC:
--- NOTE | 2020-02-01 01:14 | Progress Note ---
DATE: 01/31/2020 SUBJECTIVE: The patient is doing well. Has anxiety, irritable mood, poor insight. Compliant with medication. MENTAL STATUS EXAMINATION: The patient is alert and oriented to times, self, place, and situation. Mood is neutral. Affect is flat. Thought process is concrete. Thought content, no suicidal or homicidal ideation. Cognition is intact. Insight and judgment, fair. ASSESSMENT: Stable. PLAN: 1. Continue current medications. 2. Provide the patient with reality orientation and supportive therapy. Melisa Ceron M.D. DR: Fariha JOB#: [id number] CC:
--- NOTE | 2020-02-01 11:41 | NUR ---
*-* NO DISCHARGE SUMMARY IN THE SYSTEM UNABLE TO SEND TO INSURANCE COMPANY *-*
--- NOTE | 2020-02-01 13:32 | Discharge Summary ---
Discharge Summary Discharge Summary _ DATE OF ADMISSION: 01/26/2020 DATE OF DISCHARGE: 01/31/[address] Aragon REASON FOR ADMISSION: 59 years old female with past medical history of chronic kidney disease stage V , cirrhosis, rectal prolapse, seizure disorder, liver cirrhosis, presented with allegedly bloody stool and anemia. Patient presented for evaluation from the snf facility. Laboratory work-up revealed no leukocytosis, hemoglobin 13.7 ,hematocrit 41.7, platelet count 104. Potassium 5.1 . BUN 18, creatinine 0.8. Lactic acid 0.7. AST 52, ALT 32 . Troponin negative . Albumin 3.3 . Urinalysis revealed +1 leukocyte esterase , no pyuria and few bacteria. Troponin negative . EKG revealed sinus rhythm, no acute ischemic changes. Chest x-ray revealed no acute cardiopulmonary pathology. Patient also was swabbed for COVID-19. Patient admitted for GI bleeding Patient started on the IV fluids, IV Protonix and admitted to Med-Surg floor to isolation room. CONSULTANTS: pulmonary Dr. Arteaga GI specialist Dr. Ge surgery Dr. Minaya psychiatrist Dr. terrence Glez HOSPITAL COURSE: Patient admitted initially to isolation room. GI specialist followed. Abdominal ultrasound demonstrated coarsened hepatic echogenicity. No definite surface nodularity to suggest cirrhosis. However sluggish to and from flow to the main portal vein and mild splenomegaly raised concern for portal hypertension. Cholelithiasis. Questionable gallbladder wall thickening and edema. Hepatitis panel was negative. LFT remained stable. Hemoglobin and hematocrit were closely monitored with goal to keep hemoglobin above 7. Prior to discharge hemoglobin 11.8, hematocrit 33.7. Anemia work-up revealed stable iron, folate and B12. SARS-CoV-2 by PCR came back not detected. Isolation discontinued. Blood cultures were negative. Rectal prolapse was reduced by surgeon. No large hemorrhoids noted. No nausea or vomiting. No fever , chills. No acute surgical intervention was planned. GI procedures were on hold given stable hemoglobin and hematocrit . Noted elevated ammonia 158 . Patient started on lactulose and rifaximin. Trend ammonia levels in the nursing facility. Fall precaution maintained. Patient was working with physical therapist. Seizure precaution maintained. Keppra continued. No evidence of seizure activity while in the hospital. Psychiatric medication regimen continued. Patient clinically stabilized and was ready for discharge to snf facility for continuation of care. FINAL DIAGNOSES: Lower GI bleeding Suspected CoVID 19- ruled out Hemorrhoids Rectal prolapse - reduced Liver cirrhosis Thrombocytopenia Psychiatric disorder DISCHARGE MEDICATIONS: See Medication Reconciliation list. DISCHARGE INSTRUCTIONS: Patient was discharged to the snf facility. Follow up with medical doctor at the facility. I have been assigned to dictate discharge summary for this account. I was not involved in the patient's management. Lisseth Lora NP February 01, 2020 13:32
== END 2020-01-31 16:50 | DRG 253 ==
LOC: EDBD 21:13 → EMR 21:15 → EDBEDREQ 21:51 → OBSVTOIN 22:47 → 4E 22:47 → EDBEDREQ 22:50
DX: K92.2 Gastrointestinal hemorrhage, unspecified (principal); K74.60 Unspecified cirrhosis of liver; K64.9 Unspecified hemorrhoids; N39.0 Urinary tract infection, site not specified; E86.0 Dehydration; I12.0 Hypertensive chronic kidney disease with stage 5 chronic kidney disease or end stage renal disease; N18.5 Chronic kidney disease, stage 5; G40.909 Epilepsy, unspecified, not intractable, without status epilepticus; K62.3 Rectal prolapse; D69.6 Thrombocytopenia, unspecified; F99 Mental disorder, not otherwise specified; R13.10 Dysphagia, unspecified; F03.90 Unspecified dementia, unspecified severity, without behavioral disturbance, psychotic disturbance, mood disturbance, and anxiety
CPT/HCPCS: 36415; 70450; 71045; 76700; 80048; 80053; 80299; 81003; 82140; 82607; 82746; 83540; 83550; 83605; 83690; 84484; 85007; 85025; 85610; 85730; 86705; 86709; 86803; 86850; 86900; 86901; 87040; 87081; 87340; 87635; 93005; 96361; 96374; 99284; J7030